=== PATIENT | female | born 1960 | race Two or more races ===

== ENCOUNTER 2024-05-15 05:58 | Inpatient (IN) | payer OTHER, MEDICARE, SELFPAY ==
[2024-05-15] VITALS (12 sets, daily range): BP systolic 119–152; BP diastolic 55–79; PULSE 65–185; RESP 18–20; TEMP 36.1–36.7; O2SAT 96–99; BMI 36.6
--- NOTE | 2024-05-15 06:12 | XR_ITS ---
Examination: AP chest single view Technique one AP portable upright chest single view Exam date and time: May 15, 2024 0616 hrs. Comparison April 18, 2018 Indication: Chest pain and tachycardia today. Findings: Normal heart size. No lobar pneumonia or pulmonary edema Impression: No lobar pneumonia or pulmonary edema
--- NOTE | 2024-05-15 06:37 | PD.EDADULT ---
ED General RME/HPI General Chief complaint: Chest Pain Stated complaint: chest pain, jaw pain, left arm pain Time Seen by Provider: 05/15/24 06:04 Arrival date/time: 05/15/24 05:58 RME / HPI RME / HPI narrative: Patient is 63 years old female with past medical history of hypertension and type 2 diabetes mellitus presented to the ED due to palpitations, shortness of breath and chest pain starting 30 minutes ago. She reports symptoms developed suddenly, her chest pain radiates to her left arm, left jaw and neck. She reports similar chest pain approximately 1 months ago but it resolved by itself and she did not seek medical attention because it resolved. She denies drinking alcohol, doing drugs or using tobacco. She denies abdominal pain, nausea, vomiting, diarrhea, fever, chills. Related Data Home Medications ?Medication ?Instructions ?Recorded ?Confirmed atenolol 100 mg tablet 100 mg PO BID ##0 08/17/09 05/15/24 glimepiride 4 mg tablet (Amaryl) 4 mg PO QDAY #0 tabs 04/10/15 05/15/24 metformin 1,000 mg tablet 1,000 mg PO BID #0 tabs 04/10/15 05/15/24 (Glucophage) fexofenadine 180 mg tablet 180 mg PO QDAY 11/02/17 05/15/24 (Monique Allergy) insulin human U-100 NPH-regulr 20 unit subcut HS 11/02/17 05/15/24 70-30 mix 100 unit/mL subcutaneous susp (Humulin 70/30 U-100 Insulin) insulin regular human 100 unit/mL 15 unit subcut TID PRN 11/02/17 05/15/24 injection solution Hyperglycemia bupropion HCl 100 mg tablet 100 mg PO DAILY 05/15/24 05/15/24 ergocalciferol (vitamin D2) 1,250 1,250 mcg PO QDAY 05/15/24 05/15/24 mcg (50,000 unit) capsule hydroxyzine HCl 25 mg tablet 25 mg PO DAILY 05/15/24 05/15/24 pravastatin 10 mg tablet 10 mg PO QDAY 05/15/24 05/15/24 Previous Rx's ?Medication ?Instructions ?Recorded albuterol sulfate 90 mcg/actuation 2 puff inhalation QID PRN 04/18/18 aerosol inhaler shortness of breath #18 grams guaifenesin 100 mg/5 mL oral liquid 200 mg (10 mL) PO Q4H PRN cold 04/18/18 symptoms #118 mL Allergies Allergy/AdvReac Type Severity Reaction Status Date / Time codeine Allergy Severe DIFFICULTY Verified 04/18/18 00:02 BREATHING Review of Systems Review of Systems Systems Reviewed: All systems reviewed, normal except as documented ED Exam Narrative Physical exam: Gen: Well-developed and well-nourished female. HEENT: NCAT, PERRLA, EOMI, MMM, anicteric conjunctivae. CVS: normal S1 and S2. Irregularly irregular. No M/R/G. Resp: CTA B/L. No rhonchi, rales, crackles or wheezing. Abd: soft, non-tender, non-distended. BS+ in all 4 quadrants. MSK: Good ROM in BUE & BLE. No edema or rash. Neuro: CN II-XII grossly intact. Strength 5/5 in BUE & BLE. Alert and oriented x3. Psych: Appears anxious. Course Course Course Narrative: 0607: EKG showed Afib with RVR, HR 148. Telemonitor shows HR in 150-180s.. 0645: given diltiazem 10 mg IV x1. HR in 120-130s. 0650: given diltiazem 10 mg IV x1. HR in 80s. 0740: decision to admit. 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 00 Care 05/15/24 06:12 Active Decision to Admit X1 Care 05/15/24 07:49 Completed EKG (ED ONLY) *Do not use* NOW Care 05/15/24 06:04 Completed EKG (ED ONLY) *Do not use* NOW Care 05/15/24 07:33 Completed Insert IV NOW Care 05/15/24 06:13 Active EKG (ED Only) Stat Exams 05/15/24 06:04 Ordered EKG (ED Only) Stat Exams 05/15/24 07:33 Ordered XR chest 1V portable Stat Exams 05/15/24 06:12 Completed B-Type Natriuretic Peptide Stat Lab 05/15/24 06:29 Completed Beta Hydroxybutyrate Stat Lab 05/15/24 08:01 Completed CBC Stat Lab 05/15/24 06:29 Completed Comprehensive Metabolic Panel Stat Lab 05/15/24 06:29 Completed Drug Screen,Urine Stat Lab 05/15/24 06:12 Completed Lactic Acid [Lactate (Lactic Acid)] Stat Lab 05/15/24 08:01 Completed Magnesium Stat Lab 05/15/24 06:29 Completed Partial Thromboplastin Time Stat Lab 05/15/24 06:29 Completed Prothrombin Time with INR Stat Lab 05/15/24 06:29 Completed TSH [Thyroid Stimulating Hormone] Stat Lab 05/15/24 06:29 Completed Troponin I Stat Lab 05/15/24 06:29 Completed Urinalysis Stat Lab 05/15/24 08:22 Completed Diltiazem Inj [Cardizem Inj] Med 05/15/24 06:36 Discontinued 10 mg IV X1 ONE Diltiazem Inj [Cardizem Inj] Med 05/15/24 06:48 Discontinued 10 mg IV X1 ONE Diltiazem Inj [Cardizem Inj] Med 05/15/24 06:46 Discontinued 15 mg IV X1 ONE Diltiazem Inj [Cardizem Inj] Med 05/15/24 06:32 Discontinued 25 mg IV .STK-MED ONE INSULIN LISPRO (AdmeLOG) [HumaLOG] Med 05/15/24 07:34 Discontinued 10 unit SC X1 ONE Magnesium Sulfate 4 GM Ivpb [Magnesium Sulfate Ivpb] Med 05/15/24 07:35 Discontinued 4 gm in 50 ml IV X1 Vital Signs Vital signs: Vital Signs Temperature 98.0 F 05/15/24 06:09 Pulse Rate 140 H 05/15/24 06:09 Respiratory Rate 20 05/15/24 06:09 Blood Pressure 119/79 05/15/24 06:09 Pulse Oximetry (%) 98 05/15/24 06:09 Oxygen Delivery Method Room Air 05/15/24 06:09 Procedures -ED EKG Interpretation #1: Date of EK05/15/24 Time of EK:07 Rate: 148 Interpretation: Reviewed by me EKG Impression: Atrial fibrillation (RVR) and Non-specific ST-T MDM Patient data External records reviewed:: [facility] previous records Clinical information provided by:: patient and family Social determinants that could affect healthcare access:: none Patient has the following chronic illnesses:: HTN and DM2 How is presenting disease/condition affected by chronic disease/condition?: exacerbated by Evaluation data The following diagnostics were reviewed and interpreted by me:: lab results, radiology exam(s) and EKG tracing(s) Lab and/or radiology exams considered but not ordered:: CTA Interpretation Summary: Afib with RVR Medications Medications considered but not ordered:: Amiodarone, metoprolol, heparin drip Medication administrations:: Medication Administration History Acetaminophen (Acetaminophen 325 Mg Tablet) 650 mg PO Q6H PRN PRN Reason: Fever >100.4 or pain Stop: 06/14/24 08:35 Apixaban (Apixaban 2.5 Mg Tablet) 5 mg PO BID RADHA Stop: 06/14/24 09:14 Last Admin: 05/15/24 10:00 Dose: 5 mg Documented By: VLADIMIR Dextrose (Dextrose 50%-Water Inj 50 Ml Syringe) 25 ml IV Q15MIN PRN PRN Reason: BG 50-70 responsive npo pt Stop: 06/14/24 08:40 Dextrose (Dextrose 50%-Water Inj 50 Ml Syringe) 50 ml IV Q15MIN PRN PRN Reason: BG <50 OR BG <70 & pt unresponsive Stop: 06/14/24 08:40 Glucagon (Glucagon Inj 1 Mg Vial) 1 mg IM Q15MIN PRN PRN Reason: BG <70, and no IV access Lactated Ringer's (Lactated Ringers) 1,000 mls @ 200 mls/hr IV .Q5H RADHA Stop: 05/15/24 18:43 Last Admin: 05/15/24 15:48 Dose: 200 mls/hr Documented By: Infusion: 05/15/24 14:30 Dose: Infused Documented By: Admin: 05/15/24 11:00 Dose: 200 mls/hr Documented By: VLADIMIR Insulin Glargine (Insulin Glargine (Lantus) 5 Unit/0.05 Ml (Per 5 Units)) 25 unit SC QDAY [facility] Stop: 06/14/24 10:59 Last Admin: 05/15/24 12:06 Dose: 25 unit Documented By: VLADIMIR Co-signed By: AVILA Insulin Human Lispro (Insulin Lispro (Admelog) 1 Unit/0.01 Ml Unit) 0 unit SC AC [facility]; Protocol Stop: 06/14/24 11:29 Last Admin: 05/15/24 16:29 Dose: 2 unit Documented By: JOLEEN Co-signed By: MATT Admin: 05/15/24 12:09 Dose: Not Given Documented By: VLADIMIR Non-Admin Reason: Duplicate Medication on eMAR Comments: ADMINISTERED 25 UNITS OF LANTUS. WILL HOLD Metoprolol Succinate (Metoprolol Succinate Xl 25 Mg Tabcr) 25 mg PO QDAY [facility] Stop: 06/14/24 11:14 Last Admin: 05/15/24 12:17 Dose: 25 mg Documented By: VLADIMIR Ondansetron HCl (Ondansetron Inj 2 Mg/Ml Inj 2 Ml) 4 mg IV Q6H PRN; Protocol PRN Reason: NAUSEA OR VOMITING Stop: 06/14/24 08:35 Pantoprazole Sodium (Pantoprazole 20 Mg Tablet) 20 mg PO QDAY [facility] Stop: 06/14/24 08:59 Last Admin: 05/15/24 10:00 Dose: 20 mg Documented By: VLADIMIR Discontinued Medications Diltiazem HCl (Diltiazem Inj 5 Mg/Ml Vial 5 Ml) 10 mg IV X1 ONE Stop: 05/15/24 06:37 Last Admin: 05/15/24 06:40 Dose: 10 mg Documented By: RUDDY Diltiazem HCl (Diltiazem Inj 5 Mg/Ml Vial 5 Ml) Confirm Administered Dose 25 mg IV .STK-MED ONE Stop: 05/15/24 06:33 Last Admin: 05/15/24 06:43 Dose: Not Given Documented By: RUDDY Non-Admin Reason: Override Medication Diltiazem HCl (Diltiazem Inj 5 Mg/Ml Vial 5 Ml) 15 mg IV X1 ONE Stop: 05/15/24 06:47 Last Admin: 05/15/24 06:53 Dose: Not Given Documented By: RUDDY Non-Admin Reason: Cancelled by Provider Diltiazem HCl (Diltiazem Inj 5 Mg/Ml Vial 5 Ml) 10 mg IV X1 ONE Stop: 05/15/24 06:49 Last Admin: 05/15/24 06:52 Dose: 10 mg Documented By: RUDDY Enoxaparin Sodium (Enoxaparin Sod Inj 40 Mg/0.4 Ml Syringe) 40 mg SC QDAY [facility] Stop: 05/29/24 08:59 Last Admin: 05/15/24 14:45 Dose: Not Given Documented By: VLADIMIR Non-Admin Reason: Per Protocol Magnesium Sulfate (Magnesium Sulfate Ivpb) 4 gm in 50 mls @ 12.5 mls/hr IV X1 ONE Stop: 05/15/24 11:34 Last Infusion: 05/15/24 12:06 Dose: Infused Documented By: Admin: 05/15/24 08:17 Dose: 12.5 mls/hr Documented By: VLADIMIR Lactated Ringer's (Lactated Ringers) 1,000 mls @ 999 mls/hr IV .Q1H1M ONE Stop: 05/15/24 09:44 Last Infusion: 05/15/24 11:25 Dose: Infused Documented By: Admin: 05/15/24 10:01 Dose: 999 mls/hr Documented By: VLADIMIR Magnesium Sulfate (Magnesium Sulfate Ivpb) 2 gm in 50 mls @ 25 mls/hr IV X1 ONE Stop: 05/15/24 13:04 Last Infusion: 05/15/24 14:55 Dose: Infused Documented By: Admin: 05/15/24 12:45 Dose: 25 mls/hr Documented By: VLADIMIR Insulin Human Lispro (Insulin Lispro (Admelog) 1 Unit/0.01 Ml Unit) 10 unit SC X1 ONE Stop: 05/15/24 07:35 Last Admin: 05/15/24 08:41 Dose: 10 unit Documented By: VLADIMIR Co-signed By: FRANSISCO Diltiazem Consultations Consultation(s) initiated? (list below): No Diagnosis Differential Diagnosis ED Complaint MDM: New onset Afib with RVR, STEMI/NSTEMI, SVT, acute CHF Most likely diagnosis given after review of the tests above:: New onset A-fib with RVR. Admission Indicated Admission indicated?: indicated Explain why admission is indicated or not indicated:: Patient came in with new onset symptomatic A-fib with RVR complaining of chest pain radiating to her left arm jaw and neck. She had similar episode 1 months ago. She never had similar symptoms before. Patient need to be worked up for possible causes of A-fib with RVR given past medical history of diabetes which appears to be poorly controlled and hypertension. Admission Request Was there a request for admission?: Yes Admission Attestation Admission request attestation: Discussed case with [] from Hospitalist service regarding admission. Discussed patients ED course, exam findings, labs, and radiology results. The Hospitalist [agrees,declines] to accept the patient for admission. Disposition Plan Disposition Plan: Admit Medical Decision Making MDM Narrative MDM Narrative: The patient is a 63-year-old with shortness of breath and chest pressure 30 minutes prior to arrival. She states she also had a similar episode lasted 5 minutes and resolved spontaneously. She is never seen a doctor for this before. On arrival she was found to be in A-fib RVR with a rate of 140-160 but, but was comfortable having some chest discomfort. Cardiac workup was initiated and we decided to give her diltiazem initially with 10 mg with a heart rate dropped about 120 still in A-fib a second 10 mg IV dose was given and soon after that she converted to sinus rhythm rate 82. Initial EKG reveals A-fib RVR with a rate of 1 40-1 70. After she converted the monitor reveals a sinus rhythm rate 82 . [address] elevation pattern on the initial EKG. Patient was much more comfortable after if she spontaneously converted after second dose of diltiazem. Chest x-ray read by myself reveals normal heart size no effusion no infiltrate. Metal clips from her bra are visualized. Laboratory shows a white count of 16.7 hemoglobin 12.4 platelet count of 212,000 PT/INR within normal limits electrolytes sodium 134 potassium 4.1 chloride 99 CO2 20 anion gap 15 BUN 25 creatinine 1.0 glucose is elevated at 416 lactic acid elevated 2.7 which was treated with 2 g troponin was slightly bumped at 0.121. TSH was normal a drug screen was done which was entirely negative. Resident Claudine Kaplan contacted the hospitalist on-call and they will admit the patient for new onset atrial for with RVR that spontaneously converted. Differential Diagnosis Differential Diagnosis: New onset Afib with RVR, STEMI/NSTEMI, SVT, acute CHF Lab Data 05/15/24 06:29 05/15/24 06:29 Labs: Lab Results 05/15/24 05/15/24 05/15/24 Range/Units 06:12 06:29 08:01 WBC 16.7 H (3.6-11.0) Thou/mm3 RBC 4.49 (4.00-5.20) Miln/mm3 Hgb 12.4 (12.0-16.0) g/dL Hct 37.8 (36.0-46.0) % MCV 84 (80-100) fL MCH 27.6 (25.0-35.0) pg MCHC 32.8 (31.0-37.0) g/dl RDW Std Deviation 44.6 (36.4-46.3) fL Plt Count 212 (140-440) Thou/mm3 Neut % (Auto) 82 H (37-80) % Lymph % (Auto) 13 (10-50) % Bullock % (Auto) 5 (0-12) % Eos % (Auto) 0 (0-10) % Baso % (Auto) 0 (0-2.5) % Neut # (Auto) 13.6 H (1.8-7.7) Thou/mm3 Lymph # (Auto) 2.1 (1.0-4.8) Thou/mm3 Bullock # (Auto) 0.8 (0.0-0.8) Thou/mm3 Eos # (Auto) 0.0 (0.0-0.5) Thou/mm3 Baso # (Auto) 0.0 (0.0-0.2) Thou/mm3 Immature Gran # (Auto) 0.15 H (0.00-0.00) Thou/mm3 Absolute Nucleated RBC 0.00 (0.00-0.00) Thou/mm3 Immature Gran % 1 H (0-0) % Nucleated RBC % 0 (0) /100 WBC PT 10.3 (9.0-12.2) Seconds INR 0.9 (0.9-1.3) APTT 22.8 (22.0-36.0) Seconds Sodium 134 L (136-145) mMol/L Potassium 4.1 (3.4-5.1) mMol/L Chloride 99 (98-107) mMol/L Carbon Dioxide 20.5 (20.0-31.0) mMol/L Anion Gap 15 (7-16) BUN 25 H (9-23) mg/dL Creatinine 1.0 (0.6-1.3) mg/dL Estim Creat Clear Calc 61.1 (>60) mL/min eGFR > 60 (60 - ) See Note BUN/Creatinine Ratio 25 H (12-20) Ratio Glucose 416 H* (74-106) mg/dL Calculated Osmolality 290 (275-295) Lactic Acid 5.6 H* (0.4-2.0) mMol/L Calcium 9.7 (8.3-10.6) mg/dL Corrected Calcium 9.7 (8.5-10.1) mg/dL Magnesium 1.4 L (1.6-2.6) mg/dL Total Bilirubin 0.3 (0.3-1.2) mg/dL AST 14 (0-34) U/L ALT 22 (10-49) U/L Alkaline Phosphatase 109 (46-116) U/L Troponin I < 0.002 (0.0-0.045) ng/mL B-Natriuretic Peptide 79 (0-100) pg/mL Total Protein 6.5 (5.7-8.2) gm/dL Albumin 4.4 (3.4-4.8) gm/dL Globulin 2.1 L (2.3-3.5) gm/dL Albumin/Globulin Ratio 2.1 (1.2-2.2) Beta-Hydroxybutyrate/Acetoacetate 0.2 (<0.6) mmol/L TSH 0.70 (0.55-4.78) uIU/mL Ur Collection Type Urine Color (Lt Yel-Yel) Urine Clarity (Clear/Hazy) Urine pH (5.0-7.0) Ur Specific Clarkson (1.001-1.035) Urine Protein (Neg - Trace) Urine Glucose (UA) (Negative) Urine Ketones (Negative) Urine Blood (Negative) Urine Nitrite (Negative) Urine Bilirubin (Negative) Urine Urobilinogen (Auto) (0.0-1.0) mg/dL Ur Leukocyte Esterase (Negative) Urine RBC (0-3) /hpf Urine WBC (0-5) /hpf Ur Squamous Epith Cells (0-5) /hpf Urine Bacteria (None) Urine Opiates Screen Negative (Negative) Urine Fentanyl Screen Negative (Negative) Ur Barbiturates Screen Negative (Negative) U Amphetamin/Meth Scrn Negative (Negative) U Benzodiazepines Scrn Negative (Negative) U Cocaine Metab Screen Negative (Negative) U Marijuana (THC) Screen Negative (Negative) 05/15/24 Range/Units 08:22 WBC (3.6-11.0) Thou/mm3 RBC (4.00-5.20) Miln/mm3 Hgb (12.0-16.0) g/dL Hct (36.0-46.0) % MCV (80-100) fL MCH (25.0-35.0) pg MCHC (31.0-37.0) g/dl RDW Std Deviation (36.4-46.3) fL Plt Count (140-440) Thou/mm3 Neut % (Auto) (37-80) % Lymph % (Auto) (10-50) % Bullock % (Auto) (0-12) % Eos % (Auto) (0-10) % Baso % (Auto) (0-2.5) % Neut # (Auto) (1.8-7.7) Thou/mm3 Lymph # (Auto) (1.0-4.8) Thou/mm3 Bullock # (Auto) (0.0-0.8) Thou/mm3 Eos # (Auto) (0.0-0.5) Thou/mm3 Baso # (Auto) (0.0-0.2) Thou/mm3 Immature Gran # (Auto) (0.00-0.00) Thou/mm3 Absolute Nucleated RBC (0.00-0.00) Thou/mm3 Immature Gran % (0-0) % Nucleated RBC % (0) /100 WBC PT (9.0-12.2) Seconds INR (0.9-1.3) APTT (22.0-36.0) Seconds Sodium (136-145) mMol/L Potassium (3.4-5.1) mMol/L Chloride (98-107) mMol/L Carbon Dioxide (20.0-31.0) mMol/L Anion Gap (7-16) BUN (9-23) mg/dL Creatinine (0.6-1.3) mg/dL Estim Creat Clear Calc (>60) mL/min eGFR (60 - ) See Note BUN/Creatinine Ratio (12-20) Ratio Glucose (74-106) mg/dL Calculated Osmolality (275-295) Lactic Acid (0.4-2.0) mMol/L Calcium (8.3-10.6) mg/dL Corrected Calcium (8.5-10.1) mg/dL Magnesium (1.6-2.6) mg/dL Total Bilirubin (0.3-1.2) mg/dL AST (0-34) U/L ALT (10-49) U/L Alkaline Phosphatase (46-116) U/L Troponin I (0.0-0.045) ng/mL B-Natriuretic Peptide (0-100) pg/mL Total Protein (5.7-8.2) gm/dL Albumin (3.4-4.8) gm/dL Globulin (2.3-3.5) gm/dL Albumin/Globulin Ratio (1.2-2.2) Beta-Hydroxybutyrate/Acetoacetate (<0.6) mmol/L TSH (0.55-4.78) uIU/mL Ur Collection Type Clean Catch Urine Color Colorless A (Lt Yel-Yel) Urine Clarity Clear (Clear/Hazy) Urine pH 6.0 (5.0-7.0) Ur Specific Clarkson 1.028 (1.001-1.035) Urine Protein Negative (Neg - Trace) Urine Glucose (UA) 4+ A (Negative) Urine Ketones Trace (Negative) Urine Blood Negative (Negative) Urine Nitrite Negative (Negative) Urine Bilirubin Negative (Negative) Urine Urobilinogen (Auto) Negative (0.0-1.0) mg/dL Ur Leukocyte Esterase Negative (Negative) Urine RBC 2 (0-3) /hpf Urine WBC 3 (0-5) /hpf Ur Squamous Epith Cells < 1 (0-5) /hpf Urine Bacteria Rare (None) Urine Opiates Screen (Negative) Urine Fentanyl Screen (Negative) Ur Barbiturates Screen (Negative) U Amphetamin/Meth Scrn (Negative) U Benzodiazepines Scrn (Negative) U Cocaine Metab Screen (Negative) U Marijuana (THC) Screen (Negative) Critical Care Time Critical Care Time Critical Care Time: Yes Total Critical Care Time (min.): 40 Attestation: The high probability of sudden, clinically significant deterioration in the patient's condition required the highest level of my preparedness to intervene urgently. The services I provided to this patient were to treat and/or prevent clinically significant deterioration. Services included the following: chart data review, reviewing nursing notes and/or old charts, documentation time, search engine optimization consultant collaboration regarding findings and treatment options, medication orders and management, direct patient care, vital sign assessments and ordering, interpreting and reviewing diagnostic studies and lab tests. Aggregate critical care time includes only time during which I was engaged in work directly related to the patient's care, as described above, whether at bedside or elsewhere in the Emergency Department. It did not include time spent performing other reported procedures or the services of residents, students, nurses or physician assistants. Discharge Plan Plan Patient Disposition: Admit Acute Care w/in Hospital Disposition Comment: Admit to hospitalist Problem List Clinical Impression: New onset a-fib, Chest pain, Atrial fibrillation with rapid ventricular response MD Attestation MD Attestation I, Eric Mazariegos MD, have reviewed the history, exam, and assessment of the patient. Note I went into the chart for the resident and filled in the MDM and gave a narrative and evaluated the patient pre and post conversion. I have evaluated the patient independently and agree with the plan of care documented by [ ]. All diagnostic studies were reviewed and discussed. I confirm the diagnosis as documented by the Resident. I was present during the Medical Decision Making for this patient. The patient's plan of care was created between myself and the Resident and consistent with our discussion of the patient's case.
[2024-05-15] MEDS: DILTIAZEM INJ 5 MG/ML VIAL 5 ML 10 MG IV ×2 (06:40→06:52)
[2024-05-15 06:46] LABS: Basophils % (Auto) 0 % (0-2.5); Eosinophils % (Auto) 0 % (0-10); Hematocrit 37.8 % (36.0-46.0); Hemoglobin 12.4 g/dL (12.0-16.0); Immature Granulocytes % (Auto) 1 % (0-0); Immature Granulocytes Auto 0.15 Thou/mm3 (0.00-0.00); Lymphocytes # (Auto) 2.1 Thou/mm3 (1.0-4.8); Lymphocytes % (Auto) 13 % (10-50); Mean Corpuscular HGB Conc 32.8 g/dl (31.0-37.0); Mean Corpuscular Hemoglobin 27.6 pg (25.0-35.0); Mean Corpuscular Volume 84 fL (80-100); Monocytes # (Auto) 0.8 Thou/mm3 (0.0-0.8); Monocytes % (Auto) 5 % (0-12); Neutrophils # (Auto) 13.6 Thou/mm3 (1.8-7.7); Neutrophils % (Auto) 82 % (37-80); Nucleated Red Blood Cell % 0 /100 WBC (0); Platelet Count 212 Thou/mm3 (140-440); RDW Standard Deviation 44.6 fL (36.4-46.3); Red Blood Count 4.49 Miln/mm3 (4.00-5.20); White Blood Count 16.7 Thou/mm3 (3.6-11.0)
[2024-05-15 07:00] LABS: INR 0.9 (0.9-1.3); Partial Thromboplastin Time 22.8 Seconds (22.0-36.0); Prothrombin Time 10.3 Seconds (9.0-12.2)
[2024-05-15 07:06] LABS: Alanine Aminotransferase 22 U/L (10-49); Albumin, Serum 4.4 gm/dL (3.4-4.8); Albumin/Globulin Ratio 2.1 (1.2-2.2); Alkaline Phosphatase 109 U/L (46-116); Anion Gap 15 (7-16); Aspartate Amino Transferase 14 U/L (0-34); BUN/Creatinine Ratio 25 Ratio (12-20); Bilirubin,Total 0.3 mg/dL (0.3-1.2); Blood Urea Nitrogen 25 mg/dL (9-23); Calcium 9.7 mg/dL (8.3-10.6); Calcium (Corrected) 9.7 mg/dL (8.5-10.1); Carbon Dioxide 20.5 mMol/L (20.0-31.0); Chloride 99 mMol/L (98-107); Estimated Creatinine Clearance 61.1 mL/min (>60); Globulin 2.1 gm/dL (2.3-3.5); Magnesium 1.4 mg/dL (1.6-2.6); Osmolality,Calculated 290 (275-295); Potassium 4.1 mMol/L (3.4-5.1); Sodium 134 mMol/L (136-145); Total Protein 6.5 gm/dL (5.7-8.2); Troponin I < 0.002 ng/mL (0.0-0.045); eGFR > 60 See Note
[2024-05-15 07:09] LABS: Glucose 416 mg/dL (74-106)
[2024-05-15 07:11] LABS: B-Type Natriuretic Peptide 79 pg/mL (0-100)
[2024-05-15 08:17] LABS: Lactate (Lactic Acid) 5.6 mMol/L (0.4-2.0)
[2024-05-15] MEDS: Magnesium Sulfate 4 GM Ivpb 4 GM/50 ML BAG IV (08:17)
[2024-05-15 08:30] LABS: Beta Hydroxybutyrate 0.2 mmol/L (<0.6)
[2024-05-15] MEDS: INSULIN LISPRO (AdmeLOG) 1 UNIT/0.01 ML UNIT 10 UNIT SC (08:41)
[2024-05-15 08:49] LABS: Collection Type, Urine Clean Catch
[2024-05-15 08:57] LABS: Bacteria,Urine Rare; Bilirubin,Urine Negative (Negative); Blood,Urine Negative (Negative); Clarity,Urine Clear (Clear/Hazy); Color,Urine Colorless (Lt Yel-Yel); Glucose, Urine 4+ (Negative); Ketones,Urine Trace (Negative); Leukocyte Esterase,Urine Negative (Negative); Nitrite,Urine Negative (Negative); Protein,Urine Negative (Neg - Trace); RBC,Urine 2 /hpf (0-3); Specific Gravity,Urine 1.028 (1.001-1.035); Squamous Epithelial Cell,Urine < 1 /hpf (0-5); Urobilinogen,Urine Negative mg/dL (0.0-1.0); WBC,Urine 3 /hpf (0-5)
[2024-05-15 09:18] LABS: Amphetamine/Methamp Scrn,U Negative (Negative); Barbiturate Screen,Urine Negative (Negative); Benzodiazepines Screen,Urine Negative (Negative); Benzoylecgonine Screen, Ur Negative (Negative); Fentanyl Screen,Urine Negative (Negative); Opiate Screen,Urine Negative (Negative); THC Screen,Urine Negative (Negative)
[2024-05-15] MEDS: PANTOPRAZOLE 20 MG TABLET PO (10:00)
[2024-05-15] MEDS: APIXABAN 2.5 MG TABLET 5 MG PO (10:00)
[2024-05-15] MEDS: RINGERS LACTATED 1000 ML 1,000 ML 999 ML IV (10:01)
--- NOTE | 2024-05-15 10:13 | PD.RESCONSUL ---
HPI Data of Consult Patient: new to practice Consult date: 05/15/24 Requesting Physician: Amisha Heard MD Admitting Provider: Amisha Heard MD Attending Provider: Amisha Heard MD Primary Care Provider: Camron Gandara MD Consult Narrative Reason for consult: Chest pain, palpitations History of present illness: Ms. Castillo is a 63-year-old female with past medical history of CVA 1997, insulin-dependent diabetes mellitus, hypertension, asthma, allergies and anxiety who presented to [facility] emergency department with a chief complaint chest pain. Patient reported initial episode of chest pressure 8/10 2 to 3 weeks ago, reported waking up with chest pain/pressure radiating to her left arm, reported the feeling of palpitations and described it as ringing in her ears . Patient reported that this morning she woke up with pain worse than last time reported chest pressure retrosternal 10/10 radiating to her left arm and jaw associated with sweating, shortness of breath, headache and palpitations, reported that she felt her heart was jogging. She reports that her pain lasted for about 1 hour and resolved in the emergency department after she was given medication. Patient otherwise denies any shortness of breath on exertion, chest pain on exertion, orthopnea, bilateral lower extremity edema, syncope, falls, dizziness and near syncope. Patient reported she has never seen a purchasing agent before, was started on atenolol by primary care physician in the past. ED course: On presentation patient had blood pressure 119/79, heart rate 140, respiratory rate 20, temp 98.0, O2 sat 98 on room air Labs in emergency department significant for: WBC 16.7, glucose 416, troponin negative, magnesium 1.4. Imaging significant for: Chest x-ray unremarkable. EKG in ED shows A-fib with RVR, rate 148 Patient received 2 rounds of diltiazem 10 mg, with resolution of A-fib with RVR and significant improvement in symptoms. Patient given 10 units Lantus for glucose. Patient admitted for cardiac chest pain, new onset atrial fibrillation and cardiology consulted. cc:: cc: Amisha Heard MD Review of Systems Review of Systems Narrative Review of Systems: ROS: -CONSTITUTIONAL: Denies weight loss, fever and chills. -HEENT: Denies changes in vision and hearing. -RESPIRATORY: Positive for shortness of breath, denies cough -CV: Positive for palpitations and chest pain -GI: Denies abdominal pain, nausea, vomiting,constipation and diarrhea. -: Denies dysuria and urinary frequency. -MSK: Denies myalgia and joint pain. -SKIN: Denies rash and pruritus. -NEUROLOGICAL: Denies headache and syncope. -PSYCHIATRIC: Denies recent changes in mood. Denies anxiety and depression. 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 Positive heart disease and grandmother and multiple aunts and uncles. Exam Vital Signs Temp Pulse Resp BP Pulse Ox O2 Del Method 98.0 F 110 H 20 130/62 96 Room Air 05/15/24 06:09 05/15/24 09:16 05/15/24 09:16 05/15/24 09:16 05/15/24 09:16 05/15/24 07:05 Narrative Exam Physical Exam General: Awake and in no acute distress. Conversational and non-toxic appearing. HEENT: Normocephalic, atraumatic, mucous membranes moist. Heart: Regular rate and rhythm, no murmurs. Lungs: Clear to auscultation with no wheezing or crackles. Abdomen: Soft, nondistended, nontender, positive bowel sounds. ?No guarding or rebound tenderness. Neurologic: Alert and oriented x3, no gross neurological deficit, and patient able to move all 4 extremities. Extremities: No edema. Skin: No rash or ecchymoses. Results Labs 05/16/24 05:42 05/16/24 05:42 Labs: Short CBC 05/15/24 Range/Units 06:29 WBC 16.7 H (3.6-11.0) Thou/mm3 Hgb 12.4 (12.0-16.0) g/dL Hct 37.8 (36.0-46.0) % Plt Count 212 (140-440) Thou/mm3 BMP 05/15/24 06:29 Sodium 134 L Potassium 4.1 Chloride 99 Carbon Dioxide 20.5 BUN 25 H Creatinine 1.0 Glucose 416 H* Calcium 9.7 Cardiac Enzymes 05/15/24 Range/Units 06:29 Troponin I < 0.002 (0.0-0.045) ng/mL Liver Function 05/15/24 Range/Units 06:29 Total Bilirubin 0.3 (0.3-1.2) mg/dL AST 14 (0-34) U/L ALT 22 (10-49) U/L Alkaline Phosphatase 109 (46-116) U/L Albumin 4.4 (3.4-4.8) gm/dL Urine 05/15/24 Range/Units 08:22 Urine Color Colorless A (Lt Yel-Yel) Urine Clarity Clear (Clear/Hazy) Urine pH 6.0 (5.0-7.0) Ur Specific [place] 1.028 (1.001-1.035) Urine Protein Negative (Neg - Trace) Urine Glucose (UA) 4+ A (Negative) Quality Measures Quality Measures none Medications Home Medications and Allergies Home Medications ?Medication ?Instructions ?Recorded ?Confirmed ?Type metformin 1,000 mg tablet 1,000 mg PO BID #0 tabs 04/10/15 05/15/24 History (Glucophage) bupropion HCl 100 mg tablet 100 mg PO DAILY 05/15/24 05/15/24 History ergocalciferol (vitamin D2) 1,250 1,250 mcg PO .once a week 05/15/24 05/16/24 History mcg (50,000 unit) capsule hydroxyzine HCl 25 mg tablet 25 mg PO DAILY 05/15/24 05/15/24 History albuterol sulfate 2.5 mg/3 mL 2.5 mg inhalation BID PRN 05/16/24 05/16/24 History (0.083 %) solution for nebulization shortness of breath or wheezing fluticasone propionate 50 1 spray intranasal DAILY 05/16/24 05/16/24 History mcg/actuation nasal spray,suspension gabapentin 300 mg capsule 300 mg PO BID 05/16/24 05/16/24 History ibuprofen 600 mg tablet 600 mg PO Q8H PRN pain 05/16/24 05/16/24 History insulin glargine 100 unit/mL (3 50 unit subcut QDAY 05/16/24 05/16/24 History mL) subcutaneous pen (Lantus Solostar U-100 Insulin) lisinopril 40 mg tablet 40 mg PO BID 05/16/24 05/16/24 History loratadine 10 mg tablet 10 mg PO DAILY 05/16/24 05/16/24 History montelukast 10 mg tablet 10 mg PO DAILY 05/16/24 05/16/24 History omeprazole 40 mg capsule,delayed 40 mg PO DAILY 05/16/24 05/16/24 History release Allergies Allergy/AdvReac Type Severity Reaction Status Date / Time codeine Allergy Severe DIFFICULTY Verified 04/18/18 00:02 BREATHING Visit Medications Acetaminophen (Acetaminophen 325 Mg Tablet) 650 mg PO Q6H PRN PRN Reason: Fever >100.4 or pain Stop: 06/14/24 08:35 Apixaban (Apixaban 2.5 Mg Tablet) 5 mg PO BID [facility] Stop: 06/14/24 09:14 Last Admin: 05/15/24 10:00 Dose: 5 mg Dextrose (Dextrose 50%-Water Inj 50 Ml Syringe) 25 ml IV Q15MIN PRN PRN Reason: BG 50-70 responsive npo pt Stop: 06/14/24 08:40 Dextrose (Dextrose 50%-Water Inj 50 Ml Syringe) 50 ml IV Q15MIN PRN PRN Reason: BG <50 OR BG <70 & pt unresponsive Stop: 06/14/24 08:40 Glucagon (Glucagon Inj 1 Mg Vial) 1 mg IM Q15MIN PRN PRN Reason: BG <70, and no IV access Magnesium Sulfate (Magnesium Sulfate Ivpb) 4 gm in 50 mls @ 12.5 mls/hr IV X1 ONE Stop: 05/15/24 11:34 Last Admin: 05/15/24 08:17 Dose: 12.5 mls/hr Lactated Ringer's (Lactated Ringers) 1,000 mls @ 200 mls/hr IV .Q5H RADHA Stop: 05/15/24 18:43 Insulin Glargine (Insulin Glargine (Lantus) 5 Unit/0.05 Ml (Per 5 Units)) 25 unit SC QDAY [facility] Stop: 06/14/24 10:59 Insulin Human Lispro (Insulin Lispro (Admelog) 1 Unit/0.01 Ml Unit) 0 unit SC AC [facility]; Protocol Stop: 06/14/24 11:29 Ondansetron HCl (Ondansetron Inj 2 Mg/Ml Inj 2 Ml) 4 mg IV Q6H PRN; Protocol PRN Reason: NAUSEA OR VOMITING Stop: 06/14/24 08:35 Pantoprazole Sodium (Pantoprazole 20 Mg Tablet) 20 mg PO QDAY [facility] Stop: 06/14/24 08:59 Last Admin: 05/15/24 10:00 Dose: 20 mg Discontinued Medications Diltiazem HCl (Diltiazem Inj 5 Mg/Ml Vial 5 Ml) 10 mg IV X1 ONE Stop: 05/15/24 06:37 Last Admin: 05/15/24 06:40 Dose: 10 mg Diltiazem HCl (Diltiazem Inj 5 Mg/Ml Vial 5 Ml) 15 mg IV X1 ONE Stop: 05/15/24 06:47 Last Admin: 05/15/24 06:53 Dose: Not Given Diltiazem HCl (Diltiazem Inj 5 Mg/Ml Vial 5 Ml) 10 mg IV X1 ONE Stop: 05/15/24 06:49 Last Admin: 05/15/24 06:52 Dose: 10 mg Enoxaparin Sodium (Enoxaparin Sod Inj 40 Mg/0.4 Ml Syringe) 40 mg SC QDAY [facility] Stop: 05/29/24 08:59 Lactated Ringer's (Lactated Ringers) 1,000 mls @ 999 mls/hr IV .Q1H1M ONE Stop: 05/15/24 09:44 Last Admin: 05/15/24 10:01 Dose: 999 mls/hr Insulin Human Lispro (Insulin Lispro (Admelog) 1 Unit/0.01 Ml Unit) 10 unit SC X1 ONE Stop: 05/15/24 07:35 Last Admin: 05/15/24 08:41 Dose: 10 unit Assessment & Plan Plan Assessment and Plan: Summary: Ms. Castillo is a 63-year-old female with past medical history of CVA 1997, insulin-dependent diabetes mellitus, hypertension, asthma, allergies and anxiety who presented to [facility] emergency department with a chief complaint chest pain. Patient admitted for cardiac chest pain, new onset atrial fibrillation and cardiology consulted. #NSTEMI type I versus type II #Typical cardiac chest pain #Elevated troponin Reported initial episode of chest pressure 8/10 2 to 3 weeks ago, reported waking up with chest pain/pressure radiating to her left arm, reported the feeling of palpitations and described it as ringing in her ears . Reported second episode this morning she woke up with pain worse than last time reported chest pressure retrosternal 10/10 radiating to her left arm and jaw associated with sweating, shortness of breath, headache and palpitations, reported that she felt her heart was jogging. She reports that her pain lasted for about 1 hour and resolved in the emergency department after she was given medication. EKG in ED shows A-fib with RVR, rate 148 Per Xi Catrina classification pretest likelihood of CAD in symptomatic patients, patient has typical angina, likelihood of CAD is 86%. NOEL ACS score 115 points, intermediate risk category, probability of in hospital 1 to 3%, 3 to 8% post discharge to 6 months. Initial troponin in ED Negative -> 0.091 -> 0.121 Recommendations: -Aspirin 325 x1, started on aspirin 81mg qday -Start high intensity statin and continue metoprolol -Hold Eliquis, follow troponin -Patient refused cardiac catheterisation, will continue with medical management -Trend troponin every 6 hours -Monitor for chest pain, consider repeating EKG as needed -Ordered echocardiogram to assess for LV function, RV function, assess for any regional wall abnormalities. #New onset A-fib with heart failure, resolved Patient had an episode of chest pain radiating to left arm and jaw associated with sweating, shortness of breath, headache and palpitations reported that her heart was jogging. She reports that her pain lasted for about 1 hour and resolved in the emergency department after she was given medication. EKG in ED shows A-fib with RVR, rate 148 Patient was given diltiazem 10 mg x 2 in ED and patient converted to sinus rhythm. [id number] Score 5 points, stroke risk 7.2% Recommendations: -Patient started on metoprolol succinate 25 mg p.o. daily, stop atenolol -Patient started on Eliquis 5 mg twice daily, will hold eveniong dose, trend troponin -Telemetry monitoring -Ordered echocardiogram to assess for LV function, RV function, rule out thrombus and assess for any regional wall abnormalities. #Hypertension Patient is on atenolol 100 mg p.o. twice daily, lisinopril 10 mg daily Patient started on metoprolol succinate, monitor blood pressure, can uptitrate metoprolol succinate as needed. #Hyperlipidemia Patient is on pravastatin 10 mg p.o. daily, continue Follow lipid panel #Electrolyte imbalance #Hypomagnesemia Corrected replace electrolytes aggressively, keep potassium more than 4 and magnesium more than 2 at all times #Insulin-dependent diabetes mellitus type 2 #Hyperglycemia #Pseudohyponatremia Patient is on Humulin, glimepiride and metformin for diabetes management. Reports was on semaglutide previously. Patient's blood glucose 416 on presentation Corrected sodium 139 for blood glucose on presentation -Currently on sliding scale insulin -Goal blood glucose for hospitalization 140?180 #GUILLERMINA, prerenal versus renal Baseline creatinine 0.6?0.7, baseline BUN 15, baseline GFR more than 60 On presentation creatinine 1.0, BUN 25, GFR more than 60 Patient is currently on IV fluids started by primary team #History of CVA, 1997 Reports history of CVA, informed that she was hospitalized in 1997 for stroke. Not on aspirin or Plavix #Leukocytosis WBC count 16.7, possibly reactive no signs of active infection currently. #Asthma #Allergies # Anxiety Management per primary team Thank you for the consult and allowing to participate in the care of the patient. Cardiology will continue to follow. Case discussed with Attending Dr. Beck. Eric Phoenix PGY1 Disclaimer: This note was dictated by speech recognition. Minor errors in mobile plant operators may be present due to voice recognition software. Attending Provider Attestation/Addendum I have personally seen and examined the patient separately on the above date of service and discussed the plan of care with the resident. I reviewed the resident Dr. Eric Phoenix consultation progress note and agree with the resident findings and plan in the note above and have also edited the documentation to reflect my findings and plan. A 63-year-old female with a past medical history of CVA in 1997, morbid obesity, insulin-dependent diabetes mellitus, hypertension, asthma, allergies, anxiety, depression, history of suicide attempt, severe osteoarthritis causing significant disability and on NSAIDs every day, asthma presented to the hospital for further evaluation of chest pain. Patient apparently has been having some chest pain but chest pressure recently with started 2 to 3 weeks ago when she had her first episode acutely subsided and today she woke up with chest pain chest pressure radiating to left arm as well as the jaw associated with some palpitation, sweating, shortness of breath. Pain lasted for an hour and subsided after giving medication. In the emergency department patient's EKG showed atrial fibrillation with RVR at 148 bpm. Patient was given 10 mg IV diltiazem x 2 and the converted to normal sinus rhythm. Patient admitted to the hospital for further workup as troponins were elevated at 0.091 0.121. Patient at high risk for CAD and cardiology consulted for A-fib as well as elevated troponins. Assessment and plan: 1. Chest pain/chest pressure with elevated troponins Mostly NSTEMI type II from supply/demand mismatch in the setting of paroxysmal atrial fibrillation but we need to rule out NSTEMI type I as patient does have significant factors for CAD as noted above. Troponins peaked at 0.12. Noel risk score was also elevated. EKG showed A-fib with RVR with minimal ST depressions during the A-fib with RVR episode. Echocardiogram was ordered Patient was recommended further ischemic evaluation with cardiac catheterization versus outpatient evaluation. Patient refused cardiac cath as she does not want any kind of invasive procedures and was recommended to follow-up with cardiology as outpatient for further ischemic evaluation. Aspirin statin and beta-holden. Check A1c TSH as well as lipid profile for further cardiac restratification. 2. New onset paroxysmal atrial fibrillation. Patient presented with A-fib with RVR at rate of around 150 bpm in the emergency department and converted to normal sinus rhythm with diltiazem 10 mg IV x 2. Chest Vascor is elevated and recommend anticoagulation with Eliquis 5 mg twice daily. Metoprolol 25 mg XL for rate control and will continue to uptitrate rate based on the blood pressure.. Will need to be at least admitted for XL 50 mg once daily 3. Essential hypertension: Started on metoprolol XL and continue to uptitrate rate and continue lisinopril for rate control 4. Hyperlipidemia Check lipid panel and continue statin for now. Management of rest of the medical conditions as per primary team and other consultants. Thank you for the consult and allowing me to participate in the care of the patient. Cardiology will continue to follow. Ramses Beck M.D. Interventional Cardiology
[2024-05-15] MEDS: RINGERS LACTATED 1000 ML 1,000 ML 200 ML IV ×2 (11:00→15:48)
[2024-05-15 11:09] LABS: Reflex Lactate? Y
[2024-05-15 11:39] LABS: Lactate (Lactic Acid) 3.8 mMol/L (0.4-2.0)
[2024-05-15] MEDS: INSULIN GLARGINE (Lantus) 5 UNIT/0.05 ML (PER 5 UNITS) 25 UNIT SC (12:06)
[2024-05-15 12:13] LABS: Troponin I 0.091 ng/mL (0.0-0.045)
[2024-05-15] MEDS: METOPROLOL SUCCINATE XL 25 MG TABCR PO ×2 (12:17→21:18)
[2024-05-15] MEDS: Magnesium Sulfate 2 GM Ivpb 2 GM/50 ML BAG IV ×2 (12:45→21:18)
[2024-05-15 14:32] LABS: Reflex Lactate? Y
[2024-05-15 15:21] LABS: Lactic Acid, 3 HR 2.7 mMol/L (0.4-2.0)
[2024-05-15 15:53] LABS: Troponin I 0.121 ng/mL (0.0-0.045)
--- NOTE | 2024-05-15 16:03 | ESHP_ITS ---
<Statement entered by Ava Silva MD - 05/16/24 06:05> I discussed with and supervised the international trade manager physician who took care of this patient. I personally saw and examined the patient and discussed the assessment and plan with the entire medicine team, including my attending Dr. Heard, I agree with most of the assessment and plan as documented below Ava Silva M.D. PGY-2 Documentation for date of: 05/15/24 HPI History of Present Illness Chief complaint: Chest pain, palpitations History of present illness: 63 y/o F with PMHx significant for insulin-dependent diabetes, hypertension presents to ED with chief complaint of sudden onset cramping chest pain radiating to left arm and jaw, with associated palpitations and shortness of breath. Patient reports having a similar episode 1 month ago that self resolved after 5 minutes. Patient was lying in bed watching a movie when the pain came on 10 out of 10, I did not resolve she came to the ED. She has no known cardiac history and does not follow with a core blower. Denies fever, chills, nausea, vomiting, abdominal pain, weakness, fatigue. ED COURSE: Labs significant for: WBC 16.7, glucose 416, troponin negative, magnesium 1.4. Imaging significant for: Chest x-ray unremarkable. EKG showing A-fib with RVR. Patient received 2 rounds of diltiazem 10 mg, with resolution of A-fib with RVR and significant improvement in symptoms. Patient given 10 units Lantus for glucose. PMH: Insulin-dependent diabetes, hypertension, PSH: Cholecystectomy, appendectomy, abdominal abscess drainage SH: Denies smoking, alcohol, drug use. FH: Mother passed due to CHF, father passed due to heart attack at age 80, has 1 grandmother and 1 grandfather who had patient mentation. Occupation: Retired, previously worked at a [employer]. Allergies:?Codeine Medications: Atenolol, albuterol, bupropion, insulin, hydroxyzine, metformin, pravastatin, omeprazole Review of Systems Review of Systems Systems Reviewed: All systems reviewed, normal except as documented Past Medical History Past Medical History Comments PMH COMMENT: PMH: Insulin-dependent diabetes, hypertension, PSH: Cholecystectomy, appendectomy, abdominal abscess drainage SH: Denies smoking, alcohol, drug use. FH: Mother passed due to CHF, father passed due to heart attack at age 80, has 1 grandmother and 1 grandfather who had patient mentation. Occupation: Retired, previously worked at a [employer]. Allergies:?Codeine Medications: Atenolol, albuterol, bupropion, insulin, hydroxyzine, metformin, pravastatin, omeprazole Exam Vital Signs Temp Pulse Resp BP Pulse Ox O2 Del Method 98.0 F 65 20 152/60 H 98 Room Air 05/15/24 06:09 05/15/24 12:17 05/15/24 11:24 05/15/24 12:17 05/15/24 11:24 05/15/24 11:24 Narrative Exam PE: Gen: Well-developed and well-nourished. HEENT: NCAT, PERRLA, EOMI, MMM, anicteric conjunctivae. CVS: normal S1 and S2. RRR. No M/R/G. Resp: CTA B/L. No rhonchi, rales, crackles or wheezing. Abd: soft, non-tender, non-distended. MSK: Good ROM in BUE & BLE. No edema or rash. Neuro: CN II-XII grossly intact. Strength 5/5 in BUE & BLE. Alert and oriented x3. Psych: appropriate mood and affect. Results: Labs 05/15/24 06:29 05/15/24 06:29 Labs: Short CBC 05/15/24 Range/Units 06:29 WBC 16.7 H (3.6-11.0) Thou/mm3 Hgb 12.4 (12.0-16.0) g/dL Hct 37.8 (36.0-46.0) % Plt Count 212 (140-440) Thou/mm3 BMP 05/15/24 06:29 Sodium 134 L Potassium 4.1 Chloride 99 Carbon Dioxide 20.5 BUN 25 H Creatinine 1.0 Glucose 416 H* Calcium 9.7 Cardiac Enzymes 05/15/24 05/15/24 05/15/24 Range/Units 06:29 11:29 15:00 Troponin I < 0.002 0.091 H* 0.121 H* (0.0-0.045) ng/mL Liver Function 05/15/24 Range/Units 06:29 Total Bilirubin 0.3 (0.3-1.2) mg/dL AST 14 (0-34) U/L ALT 22 (10-49) U/L Alkaline Phosphatase 109 (46-116) U/L Albumin 4.4 (3.4-4.8) gm/dL Urine 05/15/24 Range/Units 08:22 Urine Color Colorless A (Lt Yel-Yel) Urine Clarity Clear (Clear/Hazy) Urine pH 6.0 (5.0-7.0) Ur Specific [place] 1.028 (1.001-1.035) Urine Protein Negative (Neg - Trace) Urine Glucose (UA) 4+ A (Negative) Quality Measures Quality Measures VTE prophylaxis Medications Home Medications and Allergies Home Medications ?Medication ?Instructions ?Recorded ?Confirmed ?Type atenolol 100 mg tablet 100 mg PO BID ##0 08/17/09 0 05/15/24 History glimepiride 4 mg tablet (Amaryl) 4 mg PO QDAY #0 tabs 04/10/15 05/15/24 History metformin 1,000 mg tablet 1,000 mg PO BID #0 tabs 03/3105/15/24 History (Glucophage) fexofenadine 180 mg tablet 180 mg PO QDAY 11/02/17 History (Monique Allergy) insulin human U-100 NPH-regulr 20 unit subcut HS 11/0205/15/24 History 70-30 mix 100 unit/mL subcutaneous susp (Humulin 70/30 U-100 Insulin) insulin regular human 100 unit/mL 15 unit subcut TID P RN 11/02/17 05/15/24 History injection solution Hyperglycemia bupropion HCl 100 mg tablet 100 mg PO DAILY 05/15/24 0 05/15/24 History ergocalciferol (vitamin D2) 1,250 1,250 mcg PO QDAY 05/15/24 History mcg (50,000 unit) capsule hydroxyzine HCl 25 mg tablet 25 mg PO DAILY 05/15/24 0 05/15/24 History pravastatin 10 mg tablet 10 mg PO QDAY 05/15/2405/15 History Allergies Allergy/AdvReac Type Severity Reaction Status Date / Time codeine Allergy Severe DIFFICULTY Verified 04/18/18 00:02 BREATHING Visit Medications Acetaminophen (Acetaminophen 325 Mg Tablet) 650 mg PO Q6H PRN PRN Reason: Fever >100.4 or pain Stop: 06/14/24 08:35 Apixaban (Apixaban 2.5 Mg Tablet) 5 mg PO BID [facility] Stop: 06/14/24 09:14 Last Admin: 05/15/24 10:00 Dose: 5 mg Dextrose (Dextrose 50%-Water Inj 50 Ml Syringe) 25 ml IV Q15MIN PRN PRN Reason: BG 50-70 responsive npo pt Stop: 06/14/24 08:40 Dextrose (Dextrose 50%-Water Inj 50 Ml Syringe) 50 ml IV Q15MIN PRN PRN Reason: BG <50 OR BG <70 & pt unresponsive Stop: 06/14/24 08:40 Glucagon (Glucagon Inj 1 Mg Vial) 1 mg IM Q15MIN PRN PRN Reason: BG <70, and no IV access Lactated Ringer's (Lactated Ringers) 1,000 mls @ 200 mls/hr IV .Q5H [facility] Stop: 05/15/24 18:43 Last Admin: 05/15/24 15:48 Dose: 200 mls/hr Insulin Glargine (Insulin Glargine (Lantus) 5 Unit/0.05 Ml (Per 5 Units)) 25 unit SC QDAY [facility] Stop: 06/14/24 10:59 Last Admin: 05/15/24 12:06 Dose: 25 unit Insulin Human Lispro (Insulin Lispro (Admelog) 1 Unit/0.01 Ml Unit) 0 unit SC [facility]; Protocol Stop: 06/14/24 11:29 Last Admin: 05/15/24 12:09 Dose: Not Given Metoprolol Succinate (Metoprolol Succinate Xl 25 Mg Tabcr) 25 mg PO QDAY [facility] Stop: 06/14/24 11:14 Last Admin: 05/15/24 12:17 Dose: 25 mg Ondansetron HCl (Ondansetron Inj 2 Mg/Ml Inj 2 Ml) 4 mg IV Q6H PRN; Protocol PRN Reason: NAUSEA OR VOMITING Stop: 06/14/24 08:35 Pantoprazole Sodium (Pantoprazole 20 Mg Tablet) 20 mg PO QDAY [facility] Stop: 06/14/24 08:59 Last Admin: 05/15/24 10:00 Dose: 20 mg Discontinued Medications Diltiazem HCl (Diltiazem Inj 5 Mg/Ml Vial 5 Ml) 10 mg IV X1 ONE Stop: 05/15/24 06:37 Last Admin: 05/15/24 06:40 Dose: 10 mg Diltiazem HCl (Diltiazem Inj 5 Mg/Ml Vial 5 Ml) 15 mg IV X1 ONE Stop: 05/15/24 06:47 Last Admin: 05/15/24 06:53 Dose: Not Given Diltiazem HCl (Diltiazem Inj 5 Mg/Ml Vial 5 Ml) 10 mg IV X1 ONE Stop: 05/15/24 06:49 Last Admin: 05/15/24 06:52 Dose: 10 mg Enoxaparin Sodium (Enoxaparin Sod Inj 40 Mg/0.4 Ml Syringe) 40 mg SC QDAY [facility] Stop: 05/29/24 08:59 Last Admin: 05/15/24 14:45 Dose: Not Given Magnesium Sulfate (Magnesium Sulfate Ivpb) 4 gm in 50 mls @ 12.5 mls/hr IV X1 ONE Stop: 05/15/24 11:34 Last Infusion: 05/15/24 12:06 Dose: Infused Lactated Ringer's (Lactated Ringers) 1,000 mls @ 999 mls/hr IV .Q1H1M ONE Stop: 05/15/24 09:44 Last Infusion: 05/15/24 11:25 Dose: Infused Magnesium Sulfate (Magnesium Sulfate Ivpb) 2 gm in 50 mls @ 25 mls/hr IV X1 ONE Stop: 05/15/24 13:04 Last Infusion: 05/15/24 14:55 Dose: Infused Insulin Human Lispro (Insulin Lispro (Admelog) 1 Unit/0.01 Ml Unit) 10 unit SC X1 ONE Stop: 05/15/24 07:35 Last Admin: 05/15/24 08:41 Dose: 10 unit Assessment & Plan Plan 63 y/o F with PMHx significant for insulin-dependent diabetes, hypertension presents to ED with chief complaint of sudden onset cramping chest pain radiating to left arm and jaw, with associated palpitations and shortness of breath, admitted for new onset A-fib with RVR. #New onset A-fib with RVR #NSTEMI type I versus type II Patient presented with chief complaint of palpitations, shortness of breath, 10 out of 10 cramping chest pain radiating to jaw and left arm. Patient noted for with RVR confirmed by EKG, treated with 2 rounds of diltiazem 10 with resolution. Patient is no known previous cardiac history, does not follow with core blower. Troponin uptrending slightly, following trend. CHADVASC score 2, anticoag initiated. -Dr. Beck consulted, appreciate recommendations -Metoprolol succinate 25 mg p.o. daily -Eliquis 5 mg p.o. twice daily -Keep magnesium greater than 2 potassium greater than 4 -Telemetry -Echocardiogram ordered, follow-up -Trend troponin #Diabetes, insulin-dependent Patient has history as stated. Last A1c over a year ago. Patient requires insulin, 50 units long-acting daily. Patient hyperglycemic at presentation with glucose 416, given 10 units long-acting in the ED. Glucose down trended to 303. Patient given IVF bolus lactated Ringer's 1 L. -Insulin sliding scale -Lantus 25 units daily -IVF: Lactated Ringer's 200 mL/h x 2 L -A1c ordered, follow-up #Hypertension, patient history Patient is history as stated, treated with outpatient atenolol. -Cardiology on board, patient recommendations -Metoprolol as above DVT prophylaxis: Eliquis GI prophylaxis: Protonix Diet: Protonix Lines: Peripheral IV Code status: Full code Plan of care discussed with senior resident Dr. Silva PGY?[address] Heard. Rc Garcia MD PGY?1 Attending Provider Attestation/Addendum I attest that I was physically present for the evaluation, physical examination, lab and imaging review of the patient with the residents. I discussed the case with the residents and agree with the findings and plans of care as documented above. Patient is a 63 years old female with past medical history of diabetes, hypertension who presented to the ED with complaint of chest pain radiating to her left arm and jaw. She also had palpitation and shortness of breath. Patient had similar episode 1 month back. Patient was also having chronic cough, for which she has been on steroids. In the ED, her WBC count is 16.7 glucose 416. She is EKG was obtained, which shows A-fib with RVR. Chest x-ray was obtained, negative for acute pathology. Patient received IV diltiazem following which her rate was controlled. She also received insulin in the ED. We will admit the patient for management of A-fib with RVR and elevated troponin. Started on metoprolol, Eliquis. We will obtain cardiology consult, trend troponin. Started on insulin regimen for diabetes. We will also continue with aggressive IV hydration. Amisha Heard MD
[2024-05-15] MEDS: INSULIN LISPRO (AdmeLOG) 1 UNIT/0.01 ML UNIT SC (16:29)
[2024-05-15] MEDS: Aspirin 325 MG TABLET PO (21:45)
[2024-05-15] MEDS: ACETAMINOPHEN 325 MG TABLET 650 MG PO (21:45)
[2024-05-15 22:06] LABS: Troponin I 0.137 ng/mL (0.0-0.045)
[2024-05-15] MEDS: hydrOXYzine HCL 25 MG TABLET PO (23:36)
[2024-05-16] VITALS: BP 177/95; PULSE 80; PULSE 84; RESP 17; TEMP 36.5; O2SAT 96
[2024-05-16 04:00] VITALS: BP 124/66; PULSE 76; PULSE 78; RESP 14; TEMP 36.2; O2SAT 97
[2024-05-16 04:40] VITALS: BMI 39.4
--- NOTE | 2024-05-16 05:00 | EKG_ITS ---
[facility] Test Date: 2024-05-16 Pat Name: LEO CHAPMAN Department: Room: [facility] Gender: Female Brick Mason: [facility] : 1960 Requested By: Rc Linares Order Number: [id number] Reading MD: Rc Linares Measurements Intervals [place] Rate: 68 P: 67 MO: 138 QRS: 67 QRSD: 92 T: 56 QT: 401 QTc: 427 Interpretive Statements SINUS RHYTHM No previous ECG available for comparison /[email or web address]/[email or web address]/[id number]
[2024-05-16 05:59] LABS: Lactate (Lactic Acid) 1.5 mMol/L (0.4-2.0)
[2024-05-16 06:07] LABS: Basophils # (Auto) 0.1 Thou/mm3 (0.0-0.2); Basophils % (Auto) 1 % (0-2.5); Eosinophils # (Auto) 0.2 Thou/mm3 (0.0-0.5); Eosinophils % (Auto) 2 % (0-10); Hematocrit 34.9 % (36.0-46.0); Hemoglobin 11.3 g/dL (12.0-16.0); Immature Granulocytes % (Auto) 1 % (0-0); Immature Granulocytes Auto 0.07 Thou/mm3 (0.00-0.00); Lymphocytes # (Auto) 4.8 Thou/mm3 (1.0-4.8); Lymphocytes % (Auto) 45 % (10-50); Mean Corpuscular HGB Conc 32.4 g/dl (31.0-37.0); Mean Corpuscular Hemoglobin 27.4 pg (25.0-35.0); Mean Corpuscular Volume 85 fL (80-100); Monocytes # (Auto) 0.7 Thou/mm3 (0.0-0.8); Monocytes % (Auto) 7 % (0-12); Neutrophils # (Auto) 4.9 Thou/mm3 (1.8-7.7); Neutrophils % (Auto) 46 % (37-80); Nucleated Red Blood Cell % 0 /100 WBC (0); Platelet Count 173 Thou/mm3 (140-440); RDW Standard Deviation 44.4 fL (36.4-46.3); Red Blood Count 4.12 Miln/mm3 (4.00-5.20); White Blood Count 10.7 Thou/mm3 (3.6-11.0)
[2024-05-16 06:12] LABS: Glucose Estimated Average 197 mg/dL (80-131); Hemoglobin A1C 8.5 % Hgb (4.8-6.0)
[2024-05-16 06:20] LABS: Partial Thromboplastin Time 22.5 Seconds (22.0-36.0); Prothrombin Time 10.8 Seconds (9.0-12.2)
[2024-05-16 07:00] LABS: Alanine Aminotransferase 28 U/L (10-49); Albumin, Serum 3.6 gm/dL (3.4-4.8); Albumin/Globulin Ratio 2.1 (1.2-2.2); Alkaline Phosphatase 79 U/L (46-116); Anion Gap 10 (7-16); Aspartate Amino Transferase 32 U/L (0-34); BUN/Creatinine Ratio 30 Ratio (12-20); Bilirubin,Total 0.3 mg/dL (0.3-1.2); Blood Urea Nitrogen 21 mg/dL (9-23); Calcium 8.5 mg/dL (8.3-10.6); Calcium (Corrected) 8.8 mg/dL (8.5-10.1); Carbon Dioxide 28.7 mMol/L (20.0-31.0); Cardiac Risk Estimate 4.1 RATIO (3.7-5.6); Chloride 102 mMol/L (98-107); Cholesterol 170 mg/dL (132-200); Creatinine (Component) 0.7 mg/dL (0.6-1.3); Estimated Creatinine Clearance 91.1 mL/min (>60); Globulin 1.7 gm/dL (2.3-3.5); Glucose 159 mg/dL (74-106); HDL Cholesterol 41 mg/dL (40-60); LDL Cholesterol,Calculated 72 mg/dL (0-130); Magnesium 1.9 mg/dL (1.6-2.6); Osmolality,Calculated 287 (275-295); Phosphorous 3.4 mg/dL (2.4-5.1); Potassium 3.1 mMol/L (3.4-5.1); Sodium 141 mMol/L (136-145); Total Protein 5.3 gm/dL (5.7-8.2); Triglycerides 285 mg/dL (30-150); eGFR > 60 See Note
[2024-05-16 07:06] LABS: Troponin I 0.103 ng/mL (0.0-0.045)
[2024-05-16] MEDS: POTASSIUM CHLORIDE 20 mEq TABCR PO (07:54)
[2024-05-16] MEDS: Magnesium Sulfate 2 GM Ivpb 2 GM/50 ML BAG IV (07:54)
[2024-05-16] MEDS: INSULIN GLARGINE (Lantus) 5 UNIT/0.05 ML (PER 5 UNITS) 25 UNIT SC (07:54)
[2024-05-16 08:00] VITALS: BP 137/69; PULSE 65; PULSE 81; RESP 18; TEMP 35.9; O2SAT 99
--- NOTE | 2024-05-16 08:45 | ECHO_ITS ---
Transthoracic Echo Report Ht (in): 62 Wt (lb): 216 Exam Location: Echo Lab Status: Inpatient Watch Inspector Final Movement: SONIYA Monterroso^^^^ Indications: Procedure Performed: BP: 134 / 78 HR: 86 Rhythm: Atrial fibrillation Technical Quality: Technically difficult study MEASUREMENTS (Male / Female) Normal Values 2D ECHO LV Diastolic Diameter PLAX 3.6 cm 4.2 - 5.9 / 3.9 - 5.3 cm LV Systolic Diameter PLAX 2.5 cm IVS Diastolic Thickness 1.0 cm 0.6 - 1.0 / 0.6 - 0.9 cm LVPW Diastolic Thickness 0.9 cm 0.6 - 1.0 / 0.6 - 0.9 cm LV Relative Wall Thickness 0.5 LVOT Diameter 1.7 cm Aortic Root Diameter 2.7 cm LA Systolic Diameter LX 3.7 cm 3.0 - 4.0 / 2.7 - 3.8 cm Ascending Aorta Diameter 2.7 cm DOPPLER AV Peak Velocity 155.0 cm/s AV Peak Gradient 9.6 mmHg AV Mean Gradient 6.0 mmHg AV Velocity Time Integral 38.3 cm AI Peak Velocity 215.0 cm/s AI Peak Gradient 18.5 mmHg AI Pressure Half Time 384.0 ms MV Area PHT 2.3 cm? Mitral E Point Velocity 74.9 cm/s Mitral A Point Velocity 119.0 cm/s Mitral E to A Ratio 0.6 TR Peak Velocity 249.5 cm/s TR Peak Gradient 24.9 mmHg PV Peak Velocity 107.1 cm/s PV Peak Gradient 4.6 mmHg RVOT Peak Velocity 82.4 cm/s FINDINGS Left Ventricle Normal left ventricular size, wall thickness, systolic function with no obvious regional wall motion abnormalities. There is grade I diastolic dysfunction of the left ventricle (impaired relaxation pattern). The left ventricular ejection fraction is normal, estimated at 60-65%. Right Ventricle The right ventricle is normal in size and systolic function. The estimated right ventricular systolic pressure, 26 mmHg. Left Atrium The left atrium is normal by two-dimensional, color flow and Doppler imaging with no structural abnormalities, no thrombus formation present. Right Atrium The right atrium is normal by two-dimensional imaging, color flow and Doppler imaging with no structural abnormalities, no thrombus formation present. Atrial Septum The interatrial septum appears normal with no evidence of a shunt. Aorta The aorta is normal by two-dimensional, color flow and Doppler interrogation. Mitral Valve Mild mitral regurgitation. Mild mitral annular calcification. Aortic Valve Aortic valve sclerosis. Trace to mild aortic valve regurgitation. Tricuspid Valve There is mild tricuspid valve regurgitation. Vessels The pulmonary artery appears normal. The inferior vena cava pulmonary and hepatic veins appear normal. Pericardium The pericardium is normal by two-dimensional imaging. There is no significant pericardial effusion. CONCLUSIONS Indication: New onset Afib Normal LV size and function with an EF of 60 to 65%. Diastolic dysfunction present but cannot be graded because of atrial fibrillation. Normal RV size and function.Estimated RVSP is 20 to 25 mmHg. Trace to mild TR. Mild aortic valve sclerosis without stenosis V-max of 2 m/s. Mild mitral annular calcification along with mild MR. Trace AI. Ramses Beck (Electronically Signed) Final Date: 16 May 2024 15:24
[2024-05-16 09:10] VITALS: BP 137/69; PULSE 85
[2024-05-16] MEDS: POTASSIUM CHLORIDE 20 mEq TABCR 40 MEQ PO (09:10)
[2024-05-16] MEDS: METOPROLOL SUCCINATE XL 25 MG TABCR PO (09:10)
[2024-05-16] MEDS: PANTOPRAZOLE 20 MG TABLET PO (09:10)
[2024-05-16] MEDS: ASPIRIN EC 81 MG TABEC PO (09:11)
--- NOTE | 2024-05-16 10:13 | ESPR_ITS ---
Documentation for date of: 05/16/24 Subjective Subjective Interval history: Patient seen and examined at bedside. Patient is stable, was started on metoprolol succinate 25 mg daily yesterday. Was given additional dose 25 mg x 1 metoprolol succinate at night. Patient's troponin peaked at 0.137 then down trended. Patient needs to be on medical management for CAD considering NSTEMI type II. Patient to be discharged on aspirin 81 mg daily, metoprolol succinate 50 mg daily, atorvastatin 40 mg at bedtime and Eliquis 5 mg twice daily. Discontinue pravastatin and atenolol. Patient's Hemoglobin A1c 8.5, patient was recently prescribed steroids. Patient is on insulin at home, optimize glycemic control for risk management. Patient will need cardiology follow-up outpatient. Exam Vital Signs Temp Pulse Resp BP Pulse Ox O2 Del Method 96.6 F L 85 18 137/69 H 99 Room Air 05/16/24 08:00 05/16/24 09:10 05/16/24 08:00 05/16/24 09:10 05/16/24 08:00 05/16/24 08:00 Narrative Exam Physical Exam General: Awake and in no acute distress. Conversational and non-toxic appearing. HEENT: Normocephalic, atraumatic, mucous membranes moist. Heart: Regular rate and rhythm, no murmurs. Lungs: Clear to auscultation with no wheezing or crackles. Abdomen: Soft, nondistended, nontender, positive bowel sounds. ?No guarding or rebound tenderness. Neurologic: Alert and oriented x3, no gross neurological deficit, and patient able to move all 4 extremities. Extremities: No edema. Skin: No rash or ecchymoses. Objective Labs 05/16/24 05:42 05/16/24 05:42 Labs: Laboratory Results - last 24 hr 05/15/24 05/15/24 05/15/24 11:29 15:00 20:47 WBC RBC Hgb Hct MCV MCH MCHC RDW Std Deviation Plt Count Neut % (Auto) Lymph % (Auto) [place] % (Auto) Eos % (Auto) Baso % (Auto) Neut # (Auto) Lymph # (Auto) [place] # (Auto) Eos # (Auto) Baso # (Auto) Immature Gran # (Auto) Absolute Nucleated RBC Immature Gran % Nucleated RBC % PT INR APTT Sodium Potassium Chloride Carbon Dioxide Anion Gap BUN Creatinine Estim Creat Clear Calc eGFR BUN/Creatinine Ratio Glucose Estimated Ave Glu mg/dL Hemoglobin A1c Calculated Osmolality Lactic Acid 3.8 H 2.7 H Calcium Corrected Calcium Phosphorus Magnesium Total Bilirubin AST ALT Alkaline Phosphatase Troponin I 0.091 H* 0.121 H* 0.137 H* Total Protein Albumin Globulin Albumin/Globulin Ratio Triglycerides Cholesterol LDL Cholesterol, Calc HDL Cholesterol Cholesterol/HDL Ratio 05/16/24 05:42 WBC 10.7 D RBC 4.12 Hgb 11.3 L Hct 34.9 L MCV 85 MCH 27.4 MCHC 32.4 RDW Std Deviation 44.4 Plt Count 173 D Neut % (Auto) 46 Lymph % (Auto) 45 [place] % (Auto) 7 Eos % (Auto) 2 Baso % (Auto) 1 Neut # (Auto) 4.9 Lymph # (Auto) 4.8 [place] # (Auto) 0.7 Eos # (Auto) 0.2 Baso # (Auto) 0.1 Immature Gran # (Auto) 0.07 H Absolute Nucleated RBC 0.00 Immature Gran % 1 H Nucleated RBC % 0 PT 10.8 INR 1.0 APTT 22.5 Sodium 141 Potassium 3.1 L D Chloride 102 Carbon Dioxide 28.7 Anion Gap 10 BUN 21 Creatinine 0.7 Estim Creat Clear Calc 91.1 eGFR > 60 BUN/Creatinine Ratio 30 H Glucose [address] Glu mg/dL 197 H Hemoglobin A1c 8.5 H Calculated Osmolality 287 Lactic Acid 1.5 Calcium 8.5 Corrected Calcium 8.8 Phosphorus 3.4 Magnesium 1.9 Total Bilirubin 0.3 AST 32 ALT 28 Alkaline Phosphatase 79 D Troponin I 0.103 H* Total Protein 5.3 L Albumin 3.6 D Globulin 1.7 L Albumin/Globulin Ratio 2.1 Triglycerides 285 H Cholesterol 170 LDL Cholesterol, Calc 72 HDL Cholesterol 41 Cholesterol/HDL Ratio 4.1 Quality Measures Quality Measures VTE prophylaxis Assessment & Plan Assessment Current Active Medications: Generic Name Dose Route Start Last Admin Trade Name Freq PRN Reason Stop Dose Admin Acetaminophen 650 mg 05/15/24 08:36 05/15/24 21:45 Acetaminophen 325 Mg Tablet PO 06/14/24 08:35 650 mg Q6H PRN Administration Fever >100.4 or pain Aspirin 81 mg 05/16/24 09:00 05/16/24 09:11 Aspirin Ec 81 Mg Tabec PO 06/15/24 08:59 81 mg QDAY RADHA Administration Dextrose 25 ml 05/15/24 08:41 Dextrose 50%-Water Inj 50 Ml Syringe IV 06/14/24 08:40 Q15MIN PRN BG 50-70 responsive npo pt Dextrose 50 ml 05/15/24 08:41 Dextrose 50%-Water Inj 50 Ml Syringe IV 06/14/24 08:40 Q15MIN PRN BG <50 OR BG <70 & pt unresponsive Glucagon 1 mg 05/15/24 08:41 Glucagon Inj 1 Mg Vial IM Q15MIN PRN BG <70, and no IV access Hydroxyzine HCl 25 mg 05/15/24 22:51 05/15/24 23:36 Hydroxyzine Hcl 25 Mg Tablet PO 06/15/24 20:59 25 mg HS PRN Administration Anxiety Insulin Glargine 25 unit 05/15/24 11:00 05/16/24 07:54 Insulin Glargine (Lantus) 5 Unit/0.05 Ml (Per 5 Units) SC 06/14/24 10:59 25 unit QDAY RADHA Administration Insulin Human Lispro 0 unit 05/15/24 11:30 05/16/24 07:30 Insulin Lispro (Admelog) 1 Unit/0.01 Ml Unit SC 06/14/24 11:29 Not Given AC RADHA Protocol Metoprolol Succinate 25 mg 05/15/24 11:15 05/16/24 09:10 Metoprolol Succinate Xl 25 Mg Tabcr PO 06/14/24 11:14 25 mg QDAY RADHA Administration Ondansetron HCl 4 mg 05/15/24 08:36 Ondansetron Inj 2 Mg/Ml Inj 2 Ml IV 06/14/24 08:35 Q6H PRN NAUSEA OR VOMITING Protocol Pantoprazole Sodium 20 mg 05/15/24 09:00 05/16/24 09:10 Pantoprazole 20 Mg Tablet PO 06/14/24 08:59 20 mg QDAY RADHA Administration Plan Assessment and Plan: Summary: Ms. Castillo is a 63-year-old female with past medical history of CVA 1997, insulin-dependent diabetes mellitus, hypertension, asthma, allergies and anxiety who presented to [facility] emergency department with a chief complaint chest pain. Patient admitted for cardiac chest pain, new onset atrial fibrillation and cardiology consulted. #NSTEMI type I versus type II #Typical cardiac chest pain #Elevated troponin Reported initial episode of chest pressure 8/10 2 to 3 weeks ago, reported waking up with chest pain/pressure radiating to her left arm, reported the feeling of palpitations and described it as ringing in her ears . Reported second episode this morning she woke up with pain worse than last time reported chest pressure retrosternal 10/10 radiating to her left arm and jaw associated with sweating, shortness of breath, headache and palpitations, reported that she felt her heart was jogging. She reports that her pain lasted for about 1 hour and resolved in the emergency department after she was given medication. EKG in ED shows A-fib with RVR, rate 148 Per Xi Catrina classification pretest likelihood of CAD in symptomatic patients, patient has typical angina, likelihood of CAD is 86%. NOEL ACS score 115 points, intermediate risk category, probability of in hospital 1 to 3%, 3 to 8% post discharge to 6 months. Initial troponin in ED Negative -> 0.091 -> 0.121 -> 0.137 -> 0.103 ECHO 05/16/24 Normal LV size and function with an EF of 60 to 65%. Diastolic dysfunction present but cannot be graded because of atrial fibrillation. Normal RV size and function.Estimated RVSP is 20 to 25 mmHg. Trace to mild TR. Mild aortic valve sclerosis without stenosis V-max of 2 m/s. Mild mitral annular calcification along with mild MR. Trace AI. Recommendations: -Continue aspirin 81 mg -Continue atorvastatin 40 mg at bedtime -Continue metoprolol succinate 50 mg daily -Continue Eliquis 5 mg twice daily -Patient refused cardiac catheterisation, will continue with medical management #New onset A-fib with heart failure, resolved Patient had an episode of chest pain radiating to left arm and jaw associated with sweating, shortness of breath, headache and palpitations reported that her heart was jogging. She reports that her pain lasted for about 1 hour and resolved in the emergency department after she was given medication. EKG in ED shows A-fib with RVR, rate 148 Patient was given diltiazem 10 mg x 2 in ED and patient converted to sinus rhythm. [id number] Score 5 points, stroke risk 7.2% Recommendations: -Continue metoprolol succinate 50 mg p.o. daily, stop atenolol -Patient started on Eliquis 5 mg twice daily, continue -Telemetry monitoring #Hypertension Patient is on atenolol 100 mg p.o. twice daily, lisinopril 10 mg daily Patient started on metoprolol succinate, monitor blood pressure, can uptitrate metoprolol succinate as needed. #Hyperlipidemia Patient is on pravastatin 10 mg p.o. daily, continue Follow lipid panel #Electrolyte imbalance #Hypomagnesemia Corrected replace electrolytes aggressively, keep potassium more than 4 and magnesium more than 2 at all times #Insulin-dependent diabetes mellitus type 2 #Hyperglycemia #Pseudohyponatremia Patient is on Humulin, glimepiride and metformin for diabetes management. Reports was on semaglutide previously. Patient's blood glucose 416 on presentation Corrected sodium 139 for blood glucose on presentation -Currently on sliding scale insulin -Goal blood glucose for hospitalization 140?180 #GUILLERMINA, prerenal versus renal Baseline creatinine 0.6?0.7, baseline BUN 15, baseline GFR more than 60 On presentation creatinine 1.0, BUN 25, GFR more than 60 Patient is currently on IV fluids started by primary team #History of CVA, 1997 Reports history of CVA, informed that she was hospitalized in 1997 for stroke. Not on aspirin or Plavix #Leukocytosis WBC count 16.7, possibly reactive no signs of active infection currently. #Asthma #Allergies # Anxiety Management per primary team Thank you for the consult and allowing to participate in the care of the patient. Cardiology will continue to follow. Case discussed with Attending Dr. Beck. Eric Phoenix PGY1 Disclaimer: This note was dictated by speech recognition. Minor errors in administrative library assistant may be present due to voice recognition software. Attending Provider Attestation/Addendum I have personally seen and examined the patient separately on the above date of service and discussed the plan of care with the resident. I reviewed the resident Dr. Eric Phoenix consultation progress note and agree with the resident findings and plan in the note above and have also edited the documentation to reflect my findings and plan. Ramses Beck M.D. Interventional Cardiology
--- NOTE | 2024-05-16 10:52 | PC.PT ---
Attempt to initiate PT evaluation. Patient was sitting on the chair with 2 female visitors. Patient states she has been ambulating to go to restroom independently. This is confirmed by Nursing staff. Will cancel PT evaluation. Patient agreed.
[2024-05-16] MEDS: INSULIN LISPRO (AdmeLOG) 1 UNIT/0.01 ML UNIT SC (11:37)
[2024-05-16 12:00] VITALS: BP 150/82; PULSE 73; RESP 17; TEMP 36.1; O2SAT 98
--- NOTE | 2024-05-16 12:51 | PC.SS ---
SS met with patient who is alert/oriented. Patient states she resides with her daughter, Rohini. Patient states she's independent with ADL's. Patient was admitted for afib w/RVR. Patient states she follows with Dr. Merry Gandara. Last appt. was last week. Patient has not had any major health problems. Patient has not seen a Envelope Fold Operator for o/p service. She will be following up with p.c.p. to be referred to Cardiology. Patient states she drives herself to appointments. Patient states her alt medical decision maker is her daughter, Melissa. [facility]acy: [facility]. Patient may discharge home today. No further d/c needs.
--- NOTE | 2024-05-16 13:21 | PC.NURSE ---
Patient has discharge orders, patient's daughter will be picking her up although, she is working until 1900. MD and tele staff aware.
--- NOTE | 2024-05-16 13:39 | ESDS_ITS ---
<Statement entered by Gabrielle Issa MD - 05/16/24 15:34> I discussed with and supervised the internet marketing manager physician who took care of this patient. I personally saw and examined the patient and discussed the assessment and plan with the entire medicine team, including my attending Dr. Maravilla, I agree with the assessment and plan as documented below Patient seen and examined at bedside today. Labs and imaging reviewed. All questions were answered recommendation were given to come at the ED at any time if she is not feeling well, patient was advised of risk and benefits of an ticoagulation to see medical attention if she present gum bleeds or GI per rectum or urine. Patient will be discharged home with: -Aspirin 81 mg daily -Atorvastatin 40 mg daily -Eliquis 5 mg twice daily -Metoprolol succinate 50 mg daily The following medications have been stopped: -Atenolol, pravastatin Please follow-up with your PCP within 1-2 weeks Please follow-up with cardiology outpatient Gabrielle Issa MD PGY-3 Disclaimer: Despite multiple revisions, due to the dictation software being used, the document bellow may not be free of grammatical errors including phonetic/typographic errors. However, this does not deter from our commitment to providing health care in the patient's best interest in mind. <Statement entered by Ava Silva MD - 05/16/24 15:13> I discussed with and supervised the internet marketing manager physician who took care of this patient. I personally saw and examined the patient and discussed the assessment and plan with the entire medicine team, including my attending , I agree with most of the assessment and plan as documented below Ava Silva M.D. PGY-2 Planned Discharge Date 05/16/24 DS: Providers Provider Date of admission: 05/15/24 08:36 Primary care physician: Camron Gandara MD Admitting Provider: Amisha Heard MD Attending Provider on Admission: Marcos Maravilla MD Consults: 05/15/24 08:41 Consult to Cardiology Routine Comment: Consulting Provider: Ramses Beck 05/15/24 16:23 Referral Respiratory Therapy Routine Comment: 05/16/24 09:38 Consult to Cardiology Routine Comment: Consulting Provider: Inderjit River Attending Provider on DC: Marcos Maravilla MD Discharging Provider: Rc Garcia MD DS: Diagnosis Problem List Completed Was Problem List Reviewed/Reconciled?: Yes Hospital Course Hospital Course Hospital course: 63 y/o F with PMHx significant for insulin-dependent diabetes, hypertension presents to ED on 05/15/2024 with chief complaint of sudden onset cramping chest pain radiating to left arm and jaw, with associated palpitations and shortness of breath, admitted for new onset A-fib with RVR. A-fib resolved with 2 doses diltiazem 10 mg IV, confirmed with EKG. Patient had mild troponinemia which peaks at 0.137, likely demand ischemia. Cardiology was consulted, patient was started on metoprolol succinate, aspirin, statin. Patient cleared for discharge from cardiology perspective, with outpatient follow-up. Patient medically stable and cleared for discharge. Discharge plan: You have started on the following medications: -Aspirin 81 mg daily -Atorvastatin 40 mg daily -Eliquis 5 mg twice daily -Metoprolol succinate 50 mg daily The following medications have been stopped: -Atenolol, pravastatin Please follow-up with your PCP within 1-2 weeks Please follow-up with cardiology outpatient Please return to the ED if develop new or worsening symptoms You have been started on blood thinner, please return to ED if you develop sudden or unstoppable bleeding. Diagnoses: #New onset A-fib with RVR, resolved #NSTEMI type II #Diabetes, insulin-dependent #Hypertension, patient history Plan of care discussed with senior residents Dr. Silva PGY?[address] Issa PGY-3, and attending Dr. Maravilla. Rc Garcia MD PGY?1 Time Spent with Patient Time attestation: Total time spent providing and/or coordinating discharge services: Exam Vital Signs Temp Pulse Resp BP Pulse Ox O2 Del Method 97.0 F 85 17 150/82 H 98 Room Air 05/16/24 12:00 05/16/24 09:10 05/16/24 12:00 05/16/24 12:00 05/16/24 12:00 05/16/24 12:00 Narrative Exam PE: Gen: Well-developed and well-nourished. HEENT: NCAT, PERRLA, EOMI, MMM, anicteric conjunctivae. CVS: normal S1 and S2. RRR. No M/R/G. Resp: CTA B/L. No rhonchi, rales, crackles or wheezing. Abd: soft, non-tender, non-distended. MSK: Good ROM in BUE & BLE. No edema or rash. Neuro: CN II-XII grossly intact. Strength 5/5 in BUE & BLE. Alert and oriented x3. Psych: appropriate mood and affect. Discharge Plan Plan Patient Disposition: HOME (Self Care) Patient condition on transfer: Stable Care Plan Goals: You have started on the following medications: -Aspirin 81 mg daily -Atorvastatin 40 mg daily -Eliquis 5 mg twice daily -Metoprolol succinate 50 mg daily The following medications have been stopped: -Atenolol, pravastatin Please follow-up with your PCP within 1-2 weeks Please follow-up with cardiology outpatient Please return to the ED if develop new or worsening symptoms You have been started on blood thinner, please return to ED if you develop sudden or unstoppable bleeding. Prescriptions/Referrals Prescriptions/Med Rec: New aspirin [Ecotrin Low Strength] 81 mg Tablet,Delayed Release (Dr/Ec) 81 mg PO QDAY 30 Days Qty: 30 0RF Eliquis 5 mg tablet 5 mg PO BID 30 Days Qty: 60 0RF metoprolol succinate 50 mg tablet extended release 24 hr 50 mg PO QDAY 30 Days Qty: 30 0RF atorvastatin 40 mg tablet 40 mg PO QDAY 30 Days Qty: 30 0RF Continued metformin [Glucophage] 1,000 MG tablet 1,000 mg PO BID Qty: 0 albuterol sulfate 90 mcg/actuation HFA aerosol inhaler 2 puff INH QID PRN (Reason: shortness of breath) Qty: 18 0RF bupropion HCl 100 mg tablet 100 mg PO DAILY Patient Comments: TAKE 1 TABLET BY MOUTH TWICE DAILY hydroxyzine HCl 25 mg tablet 25 mg PO DAILY Patient Comments: TAKE 1 TABLET BY MOUTH EVERY 8 HOURS NEEDED ergocalciferol (vitamin D2) 1,250 mcg (50,000 unit) capsule 1,250 mcg PO .once a week Patient Comments: TAKE 1 CAPSULE BY MOUTH WEEKLY gabapentin 300 mg capsule 300 mg PO BID Patient Comments: TAKE 1 CAPSULE BY MOUTH TWICE DAILY fluticasone propionate 50 mcg/actuation spray,suspension 1 spray INTRANASAL DAILY Patient Comments: SHAKE LIQUID AND USE 1 SPRAY IN EACH NOSTRIL DAILY loratadine 10 mg tablet 10 mg PO DAILY Patient Comments: TAKE 1 TABLET BY MOUTH DAILY FOR ALLERGIES ibuprofen 600 mg tablet 600 mg PO Q8H PRN (Reason: pain) Patient Comments: TAKE 1 TABLET BY MOUTH THREE TIMES DAILY WITH FOOD OR MILK NEEDED omeprazole 40 mg capsule,delayed release(DR/EC) 40 mg PO DAILY Patient Comments: TAKE 1 CAPSULE BY MOUTH EVERY MORNING 30 MINUTES BEFORE BREAKFAST lisinopril 40 mg tablet 40 mg PO BID montelukast 10 mg tablet 10 mg PO DAILY Patient Comments: TAKE 1 TABLET BY MOUTH DAILY albuterol sulfate 2.5 mg /3 mL (0.083 %) solution for nebulization 2.5 mg inhalation BID PRN (Reason: shortness of breath or wheezing) Patient Comments: USE 3 ML VIA NEBULIZER EVERY 6 HOURS NEEDED insulin glargine [Lantus Solostar U-100 Insulin] 100 unit/mL (3 mL) insulin pen 50 unit subcut QDAY Discontinued atenolol 100 MG tablet 100 mg PO DAILY Qty: 0 pravastatin 10 mg tablet 10 mg PO QDAY Patient Comments: TAKE 1 TABLET BY MOUTH EVERY NIGHT Referrals: Camron Gandara MD [Primary Care Provider] - Patient/Caregiver Discharge Instructions Discharge Activity: resume usual activities Education Materials: Your Heart's Electrical System, AFL/Afib, Your Heart Is at Risk, Understanding Atrial Fibrillation Print Language: Urdu Stand Alone Forms: Myla Award Info., Patient Portal Info Letter Discharge Order Discharge Orders: Discharge (Routine); Ordered 05/16/24 Ordered By: Rc Garcia Quality Discharge Quality Measures VTE prophylaxis Attestestation MD Attestation I have examined the patient, reviewed labs and imaging findings, discussed the case with the resident(s), and reviewed entered orders. I agree with the plan of care as outlined in this note. Dr. Taiwo MD
[2024-05-16 16:00] VITALS: BP 146/92; PULSE 86; PULSE 91; RESP 17; TEMP 36.1; O2SAT 96
== END 2024-05-16 16:30 | disposition home or self-care (01) | DRG 309 ==
LOC: SERX 08:02 → SERHOLD 09:14 → S2NX 15:40
PROVIDERS: Nurse Practitioner Primary Care; Student in an Organized Health Care Education/Training Program; Admitting Provider Student in an Organized Health Care Education/Training Program; Emergency Provider Emergency Medicine; PCP Family Medicine; Visit Provider Student in an Organized Health Care Education/Training Program
DX: I48.91 Unspecified atrial fibrillation (principal); I24.89 Other forms of acute ischemic heart disease; E11.65 Type 2 diabetes mellitus with hyperglycemia; I11.0 Hypertensive heart disease with heart failure; I50.9 Heart failure, unspecified; Z79.4 Long term (current) use of insulin; Z79.82 Long term (current) use of aspirin; Z79.899 Other long term (current) drug therapy; Z79.01 Long term (current) use of anticoagulants; Z90.49 Acquired absence of other specified parts of digestive tract; Z88.5 Allergy status to narcotic agent; Z79.84 Long term (current) use of oral hypoglycemic drugs
CPT/HCPCS: 36415; 71045; 80053; 80061; 80307; 81001; 82010; 83036; 83605; 83735; 83880; 84100; 84443; 84484; 85025; 85610; 85730; 93005; 93306; 96365; 96366; 96367; 96372; 99291; J1815; J3475; J3490; J7120; A9270

== ENCOUNTER → 2024-07-12 | Outpatient (CLI) | payer MEDICARE, MEDICAID, SELFPAY ==
[2024-07-12 10:57] LABS: Glucose Estimated Average 157 mg/dL (80-131); Hemoglobin A1C 7.1 % Hgb (4.8-6.0)
[2024-07-12 11:10] LABS: Vitamin D 25 Hydroxy Total 110.1 ng/mL (7.3-40.2)
[2024-07-12 11:17] LABS: Creatinine MALB Rnd Ur 239 mg/dL (30-125); Microalbumin Creat Ratio 9 mg/gCrea (<30); Microalbumin, Random Urine 22 mg/L (0-300)
[2024-07-12 11:29] LABS: Alanine Aminotransferase 20 U/L (10-49); Albumin, Serum 4.4 gm/dL (3.4-4.8); Albumin/Globulin Ratio 2.1 (1.2-2.2); Alkaline Phosphatase 76 U/L (46-116); Anion Gap 12 (7-16); Aspartate Amino Transferase 19 U/L (0-34); BUN/Creatinine Ratio 18 Ratio (12-20); Bilirubin,Total 0.5 mg/dL (0.3-1.2); Blood Urea Nitrogen 11 mg/dL (9-23); Carbon Dioxide 28.7 mMol/L (20.0-31.0); Chloride 103 mMol/L (98-107); Creatinine (Component) 0.6 mg/dL (0.6-1.3); Globulin 2.1 gm/dL (2.3-3.5); Glucose 132 mg/dL (74-106); Osmolality,Calculated 288 (275-295); Potassium 4.3 mMol/L (3.4-5.1); Sodium 144 mMol/L (136-145); Total Protein 6.5 gm/dL (5.7-8.2); eGFR > 60 See Note
== END | disposition home or self-care (01) ==
LOC: COPL 10:04
PROVIDERS: PCP Family Medicine; Referring Provider Registered Nurse; Visit Provider Registered Nurse
DX: Z00.00 Encounter for general adult medical examination without abnormal findings (principal); E11.65 Type 2 diabetes mellitus with hyperglycemia
CPT/HCPCS: 36415; 80053; 82043; 82306; 82570; 83036

== ENCOUNTER 2024-07-24 01:29 | Emergency (ER) | payer MEDICARE, MEDICAID, SELFPAY ==
[2024-07-24 01:31] VITALS: BMI 34.7
--- NOTE | 2024-07-24 01:40 | PD.EDUPEX ---
Upper Extremity Injury RME/HPI General Chief Complaint: Extremity Injury, Upper Stated Complaint: PAIN TO L SHOULDER/NECK Time Seen by Provider: 07/24/24 01:50 Arrival date/time: 07/24/24 01:29 RME / HPI RME / HPI narrative: This section includes all my notes and documentations, including HPI, PE, and ED course. Manuel Briggs MD HPI: 64yo female with a history of DM, HTN, aFib presents to the ED for a chief complaint of left-sided neck pain. On and off for several months but severe for about 24 hours. Patient states her pain radiates to her left chest and left shoulder. She denies any shortness of breath, fever, chills, dizziness, lightheadedness or any other associated symptoms. Denies any falls or injuries. No numbness or tingling. No paralysis. No other complaints reported. ROS: All negative except as documented in HPI. Physical Exam: General: Alert and oriented. Appears to be in severe pain distress. Eyes: Conjunctivae and lids clear. EOMI. PERRL. ENT: No nasal congestion. Neck: Supple. Limited ROM secondary to pain. Heart: RRR. Lungs: No respiratory distress. Good air movement. No rhonchi, wheezing, rales. Chest: No tenderness. Abdomen: Soft and nontender. Skin: Warm and dry. Neuro: Alert and oriented X 3. Cranial Nerves II-XII grossly intact. No peripheral motor deficits. Musculoskeletal: Limited ROM of the left shoulder secondary to pain. I reviewed all diagnostic test results. My interpretation of the EKG is sinus rhythm with PACs and nonspecific ST-T wave changes. My review of the CT chest report is no acute findings. My review of the CT cervical spine is no acute findings. Blood tests are unremarkable except for Magnesium 1.4. At this point, diagnoses include cervical spine stenosis with hypomagnesemia. Treatment here included NS, Toradol, Morphine, and Magnesium Sulfate. Significant improvement noted. Recommended supportive care and more outpatient workup. Based on my best medical judgment, made decision no further evaluation or treatment indicated at this time. Patient understands and agrees to the discharge instructions customized and printed, see below. Discharge Instructions from Dr. Briggs printed for you: 1. After evaluation, your pain is due to pinched nerve coming out of the neck. There is no life-threatening condition. Such as heart attack. 2. Controlling pinched nerve pain is very difficult. Because normal pain medications don't work well. 3. Continue your tramadol and cyclobenzaprine at home. Try lidocaine patches. 4. Wear soft neck collar for 3 full days then as needed. 5. Apply ice/heat if helpful. 6. Most importantly, see a private doctor outside the ER on 07/25/2024. Ask for MRI imaging of the neck to confirm the diagnosis and assess severity. Some people choose to have surgery. Ask to review all test results and official radiology reports, to make sure you receive all necessary follow-ups and monitoring, including magnesium level which was low today. 7. Seek immediate medical care with worsening, paralysis, or with any concerns. Manuel Briggs MD Related Data Home Medications ?Medication ?Instructions ?Recorded ?Confirmed metformin 1,000 mg tablet 1,000 mg PO BID #0 tabs 04/10/15 05/15/24 (Glucophage) bupropion HCl 100 mg tablet 100 mg PO DAILY 05/15/24 05/15/24 ergocalciferol (vitamin D2) 1,250 1,250 mcg PO .once a week 05/15/24 05/16/24 mcg (50,000 unit) capsule hydroxyzine HCl 25 mg tablet 25 mg PO DAILY 05/15/24 05/15/24 albuterol sulfate 2.5 mg/3 mL 2.5 mg inhalation BID PRN 05/16/24 05/16/24 (0.083 %) solution for nebulization shortness of breath or wheezing fluticasone propionate 50 1 spray intranasal DAILY 05/16/24 05/16/24 mcg/actuation nasal spray,suspension gabapentin 300 mg capsule 300 mg PO BID 05/16/24 05/16/24 ibuprofen 600 mg tablet 600 mg PO Q8H PRN pain 05/16/24 05/16/24 insulin glargine 100 unit/mL (3 50 unit subcut QDAY 05/16/24 05/16/24 mL) subcutaneous pen (Lantus Solostar U-100 Insulin) lisinopril 40 mg tablet 40 mg PO BID 05/16/24 05/16/24 loratadine 10 mg tablet 10 mg PO DAILY 05/16/24 05/16/24 montelukast 10 mg tablet 10 mg PO DAILY 05/16/24 05/16/24 omeprazole 40 mg capsule,delayed 40 mg PO DAILY 05/16/24 05/16/24 release Previous Rx's ?Medication ?Instructions ?Recorded albuterol sulfate 90 mcg/actuation 2 puff inhalation QID PRN 04/18/18 aerosol inhaler shortness of breath #18 grams lidocaine 5 % topical patch 2 patch topical QDAY PRN pain #30 07/24/24 (Lidoderm) ea Allergies Allergy/AdvReac Type Severity Reaction Status Date / Time codeine Allergy Severe DIFFICULTY Verified 07/24/24 01:37 BREATHING Review of Systems Review of Systems Systems Reviewed: All systems reviewed, normal except as documented Past Medical History Past Medical History NEUROLOGIC: Negative Seizures CARDIAC: Positive Hypertension; Negative Congestive Heart Failure RESPIRATORY: Positive Asthma; Negative Chronic Obstructive Pulmonary Disease (COPD) GASTROINTESTINAL: Positive Gall Bladder Disease GENITOURINARY: Negative Genitourinary Disorders or Renal Disease REPRODUCTIVE: Positive Previous Pregnancies ENDOCRINE: Positive Diabetes Mellitus Type 2; Negative Diabetes Mellitus Type 1 HEMATOLOGIC: Negative Blood Disorders OTHER HISTORY: Positive Chicken Pox; Negative Blood Transfusions, Blood Transfusion Reaction, Anesthesia Reactions or Clostridium Difficile Family History FAMILY HISTORY: Negative Family Cancer Surgical History SURGICAL: Positive Tonsillectomy and Abdominal Surgery Social History SMOKING STATUS: Never smoker ED Exam Narrative Physical exam: As noted in HPI. Course Quality Measures none Orders Category Date Time Status EKG (ED ONLY) *Do not use* NOW Care 07/24/24 01:52 Completed Saline [Insert IV] NOW Care 07/24/24 01:[address] cervical spine wo con Stat Exams 07/24/24 01:[address] chest wo con Stat Exams 07/24/24 01:52 Taken EKG (ED Only) Stat Exams 07/24/24 01:52 Ordered BNP [B-Type Natriuretic Peptide] Stat Lab 07/24/24 02:05 Completed CBC Stat Lab 07/24/24 02:05 Completed CMP [Comprehensive Metabolic Panel] Stat Lab 07/24/24 02:05 Completed Magnesium Stat Lab 07/24/24 02:05 Completed Troponin I Stat Lab 07/24/24 02:05 Completed Ketorolac Inj [Toradol Inj] Med 07/24/24 01:50 Discontinued 15 mg IVP X1 ONE Magnesium Sulfate 2 GM Ivpb [Magnesium Sulfate Ivpb] Med 07/24/24 03:28 Active 2 gm in 50 ml IV X1 Morphine Inj Med 07/24/24 01:50 Discontinued 6 mg IVP X1 ONE Sodium Chloride 0.9% 1000 ml [Ns] 1,000 ml Med 07/24/24 01:51 Active IV 250 mls/hr Vital Signs Vital signs: Vital Signs Temperature 98.6 F 07/24/24 01:46 Pulse Rate 106 H 07/24/24 01:46 Respiratory Rate 16 07/24/24 01:46 Blood Pressure 146/72 H 07/24/24 01:46 Pulse Oximetry (%) 97 07/24/24 01:46 Oxygen Delivery Method Room Air 07/24/24 01:46 Extremity Injury MDM Narrative MDM Narrative:: 64yo female with a history of DM, HTN, aFib presents to the ED for a chief complaint of left-sided neck pain for the last 1 day. Patient states her pain radiates to her chest and left shoulder. She denies any shortness of breath, fever, chills, dizziness, lightheadedness or any other associated symptoms. Denies any falls or injuries. No other complaints reported. Patient data External records reviewed:: [facility] previous records (Per chart review, patient was admitted here on 05/15/24 for aFib RVR.) Clinical information provided by:: patient Social determinants that could affect healthcare access:: none Patient has the following chronic illnesses:: DM, HTN, aFib How is presenting disease/condition affected by chronic disease/condition?: uneffected by Evaluation data The following diagnostics were reviewed and interpreted by me:: lab results, radiology exam(s) and EKG tracing(s) (My interpretation of the EKG is: Sinus rhythm (101 bpm) with PACs and nonspecific ST-T changes. Manuel Briggs MD) Lab and/or radiology exams considered but not ordered:: none Interpretation Summary: I reviewed all diagnostic test results. My interpretation of the EKG is sinus rhythm with PACs and nonspecific ST-T wave changes. My review of the CT chest report is no acute findings. My review of the CT cervical spine is no acute findings. Blood tests are unremarkable except for Magnesium 1.4. Medications / Prescriptions Medications or Prescriptions considered but not ordered:: none Medication administrations:: Medication Administration History Sodium Chloride (Ns) 1,000 mls @ 250 mls/hr IV .Q4H ONE Stop: 07/24/24 05:50 Last Admin: 07/24/24 02:14 Dose: 250 mls/hr Documented By: ROCIO Magnesium Sulfate (Magnesium Sulfate Ivpb) 2 gm in 50 mls @ 25 mls/hr IV X1 ONE Stop: 07/24/24 05:27 Discontinued Medications Ketorolac Tromethamine (Ketorolac Inj 30 Mg/Ml Vial) 15 mg IVP X1 ONE Stop: 07/24/24 01:51 Last Admin: 07/24/24 02:14 Dose: 15 mg Documented By: ROCIO Morphine Sulfate (Morphine Sulf Inj 10 Mg/Ml Vial) 6 mg IVP X1 ONE Stop: 07/24/24 01:51 Last Admin: 07/24/24 02:16 Dose: 6 mg Documented By: ROCIO NS, Toradol, Morphine, Magnesium Sulfate Consultations Consultation(s) initiated? (list below): No Diagnosis Upper Extremity Injury Differential Diagnosis: dislocation of shoulder and other (Cervical radiculopathy, CA, PE, psychogenic) Most likely diagnosis given after review of the tests above:: Cervical spine stenosis and hypomagnesemia. Admission Indicated Admission indicated?: not indicated Explain why admission is indicated or not indicated:: With significant improvement, there was no indication for admission. Admission Request Was there a request for admission?: No Disposition Plan Disposition Plan: Discharge Discharge Attestation Discharge Attestation: The patient and all family members were given an opportunity to ask questions and understood the discharge instructions. Discharge instructions specifically effects, indications for sooner follow up or return to the emergency department, and the expected course of current diagnosis. Patient condition: Stable Discharge Plan Plan Patient Disposition: HOME (Self Care) Prescriptions/Referrals Prescriptions/Med Rec: New lidocaine [Lidoderm] 5 % adhesive patch,medicated 2 patch topical QDAY PRN (Reason: pain) Qty: 30 0RF Rx Instructions: leave on most painful area for up to 12 hrs No Action metformin [Glucophage] 1,000 MG tablet 1,000 mg PO BID Qty: 0 albuterol sulfate 90 mcg/actuation HFA aerosol inhaler 2 puff INH QID PRN (Reason: shortness of breath) Qty: 18 0RF bupropion HCl 100 mg tablet 100 mg PO DAILY Patient Comments: TAKE 1 TABLET BY MOUTH TWICE DAILY hydroxyzine HCl 25 mg tablet 25 mg PO DAILY Patient Comments: TAKE 1 TABLET BY MOUTH EVERY 8 HOURS NEEDED ergocalciferol (vitamin D2) 1,250 mcg (50,000 unit) capsule 1,250 mcg PO .once a week Patient Comments: TAKE 1 CAPSULE BY MOUTH WEEKLY gabapentin 300 mg capsule 300 mg PO BID Patient Comments: TAKE 1 CAPSULE BY MOUTH TWICE DAILY fluticasone propionate 50 mcg/actuation spray,suspension 1 spray INTRANASAL DAILY Patient Comments: SHAKE LIQUID AND USE 1 SPRAY IN EACH NOSTRIL DAILY loratadine 10 mg tablet 10 mg PO DAILY Patient Comments: TAKE 1 TABLET BY MOUTH DAILY FOR ALLERGIES ibuprofen 600 mg tablet 600 mg PO Q8H PRN (Reason: pain) Patient Comments: TAKE 1 TABLET BY MOUTH THREE TIMES DAILY WITH FOOD OR MILK NEEDED omeprazole 40 mg capsule,delayed release(DR/EC) 40 mg PO DAILY Patient Comments: TAKE 1 CAPSULE BY MOUTH EVERY MORNING 30 MINUTES BEFORE BREAKFAST lisinopril 40 mg tablet 40 mg PO BID montelukast 10 mg tablet 10 mg PO DAILY Patient Comments: TAKE 1 TABLET BY MOUTH DAILY albuterol sulfate 2.5 mg /3 mL (0.083 %) solution for nebulization 2.5 mg inhalation BID PRN (Reason: shortness of breath or wheezing) Patient Comments: USE 3 ML VIA NEBULIZER EVERY 6 HOURS NEEDED insulin glargine [Lantus Solostar U-100 Insulin] 100 unit/mL (3 mL) insulin pen 50 unit subcut QDAY Referrals: Gris Woody NP [Primary Care Provider] - In 1 week Problem List Clinical Impression: Cervical spinal stenosis Patient/Caregiver Discharge Instructions Discharge Activity: activity as tolerated Education Materials: ED Radiculopathy, Cervical Additional Instructions: Discharge Instructions from Dr. Briggs printed for you: 1. After evaluation, your pain is due to pinched nerve coming out of the neck. There is no life-threatening condition. Such as heart attack. 2. Controlling pinched nerve pain is very difficult. Because normal pain medications don't work well. 3. Continue your tramadol and cyclobenzaprine at home. Try lidocaine patches. 4. Wear soft neck collar for 3 full days then as needed. 5. Apply ice/heat if helpful. 6. Most importantly, see a private doctor outside the ER on 07/25/2024. Ask for MRI imaging of the neck to confirm the diagnosis and assess severity. Some people choose to have surgery. Ask to review all test results and official radiology reports, to make sure you receive all necessary follow-ups and monitoring, including magnesium level which was low today. 7. Seek immediate medical care with worsening, paralysis, or with any concerns. Instrucciones de adam del Dr. Briggs impresas para usted: 1. Tras la evaluaci?n, guadalupe dolor se debe a un nervio pinzado que sale del ji. No existe ninguna afecci?n potencialmente mortal, rakesh un infarto. 2. Controlar el dolor por nervio pinzado es muy dif?cil, ya que los analg?sicos habituales no son eficaces. 3. Contin?e con el tramadol y la ciclobenzaprina en casa. Pruebe con parches de lidoca?na. 4. Use un collar?n cervical blando laura 3 d?as completos y, a continuaci?n, seg?n sea necesario. 5. Aplique hielo/calor si le resulta ?til. 6. Lo m?s importante es que consulte con un m?dico privado fuera de urgencias el 25/07/2024. Solicite jaiden resonancia magn?jahaira del ji para confirmar el diagn?stico y evaluar la gravedad. Algunas personas optan por la cirug?a. Solicite la revisi?n de todos los resultados de las pruebas y los informes radiol?gicos oficiales para asegurarse de recibir todos los controles y monitoreos necesarios, incluyendo el nivel de magnesio, que hoy estaba bajo. 7. Busque atenci?n m?dica inmediata si presenta empeoramiento, par?lisis o cualquier inquietud. Print Language: [place] Stand Alone Forms: Myla Award Info., Patient Portal Info Letter
[2024-07-24 01:46] VITALS: BP 146/72; PULSE 106; RESP 16; TEMP 37; O2SAT 97
--- NOTE | 2024-07-24 01:52 | XR_ITS ---
Examination: CT chest, without intravenous contrast. Sagittal and coronal 2-D reconstructions. Exam date and time: July 24, 2024 0243 hours INDICATIONS: Onset of severe chest pain radiating to left arm beginning 2 months ago CTDI:vol (mGy) 18.7 DLP: (mGycm) 381 Technique: Multiple 3.0 mm axial sections of the chest to been obtained. Bone and lung density settings are obtained. Sagittal and coronal 2-D reconstructions have been obtained. Low dose protocols were performed. One or more of the following dose reduction techniques were used; automated exposure control, adjustment of the mA and/or KV according to patient size, use of iterative reconstruction technique. Findings: IMPRESSION: No pneumonia or pulmonary edema No thoracic aortic aneurysmal dilatation No paratracheal tracheobronchial or bronchopulmonary adenopathy No pneumonia or pulmonary edema. At least 13 noncalcified subcentimeter bilateral pulmonary nodules throughout the lungs No visualized liver or splenic lesion Absent gallbladder No pancreatic mass Minimal nodular thickening left adrenal gland No hydronephrosis IMPRESSION: No pneumonia or pulmonary edema At least 13 noncalcified subcentimeter pulmonary nodules throughout both lungs, with this study as baseline recommend 6 month follow-up CT chest without contrast
--- NOTE | 2024-07-24 01:52 | XR_ITS ---
Examination: CT cervical spine without contrast 2-D sagittal reconstructions 2-D coronal reconstructions 3-D reconstructions. Exam date and time:July 24, 2024 0241 hours INDICATIONS: Neck pain beginning 2 months ago CTDI:vol (mGy) 18.7 DLP: (mGycm) 381 Technique: Multiple 2 mm axial sections of the cervical spine have been obtained. The coronal and sagittal reconstructions have been obtained. 3-D reconstructions have been obtained. Low dose protocols were performed. One or more of the following dose reduction techniques were used; automated exposure control, adjustment of the mA and/or KV according to patient size, use of iterative reconstruction technique. Findings: Axial sections demonstrate intact base of the skull. C1 exhibit satisfactory relationship to the odontoid. No acute cervical vertebral body fracture seen. Alignment posterior spinous processes satisfactory. Impression: No acute cervical fracture. Moderate degenerative disc disease C6-C7 As clinically warranted, elective MRI cervical spine follow up would best assess for acquired soft tissue spinal stenosis
[2024-07-24] MEDS: KETOROLAC INJ 30 MG/ML VIAL 15 MG IVP (02:14)
[2024-07-24] MEDS: SODIUM CHLORIDE 0.9% 1000 ML 1,000 ML 250 ML IV (02:14)
[2024-07-24] MEDS: MORPHINE SULF INJ 10 MG/ML VIAL 6 MG IVP (02:16)
[2024-07-24 02:26] LABS: Basophils % (Auto) 0 % (0-2.5); Eosinophils # (Auto) 0.1 Thou/mm3 (0.0-0.5); Eosinophils % (Auto) 1 % (0-10); Hematocrit 35.6 % (36.0-46.0); Hemoglobin 11.5 g/dL (12.0-16.0); Immature Granulocytes % (Auto) 0 % (0-0); Immature Granulocytes Auto 0.03 Thou/mm3 (0.00-0.00); Lymphocytes # (Auto) 2.2 Thou/mm3 (1.0-4.8); Lymphocytes % (Auto) 21 % (10-50); Mean Corpuscular HGB Conc 32.3 g/dl (31.0-37.0); Mean Corpuscular Hemoglobin 27.6 pg (25.0-35.0); Mean Corpuscular Volume 85 fL (80-100); Monocytes # (Auto) 0.8 Thou/mm3 (0.0-0.8); Monocytes % (Auto) 7 % (0-12); Neutrophils # (Auto) 7.5 Thou/mm3 (1.8-7.7); Neutrophils % (Auto) 70 % (37-80); Nucleated Red Blood Cell % 0 /100 WBC (0); Platelet Count 151 Thou/mm3 (140-440); RDW Standard Deviation 46.6 fL (36.4-46.3); Red Blood Count 4.17 Miln/mm3 (4.00-5.20); White Blood Count 10.6 Thou/mm3 (3.6-11.0)
[2024-07-24 02:45] LABS: Alanine Aminotransferase 19 U/L (10-49); Albumin, Serum 4.5 gm/dL (3.4-4.8); Albumin/Globulin Ratio 2.6 (1.2-2.2); Alkaline Phosphatase 74 U/L (46-116); Anion Gap 9 (7-16); Aspartate Amino Transferase 18 U/L (0-34); BUN/Creatinine Ratio 25 Ratio (12-20); Bilirubin,Total 0.7 mg/dL (0.3-1.2); Blood Urea Nitrogen 15 mg/dL (9-23); Calcium 8.8 mg/dL (8.3-10.6); Calcium (Corrected) 8.8 mg/dL (8.5-10.1); Chloride 101 mMol/L (98-107); Creatinine (Component) 0.6 mg/dL (0.6-1.3); Estimated Creatinine Clearance 97.8 mL/min (>60); Globulin 1.7 gm/dL (2.3-3.5); Glucose 181 mg/dL (74-106); Magnesium 1.4 mg/dL (1.6-2.6); Osmolality,Calculated 283 (275-295); Potassium 3.5 mMol/L (3.4-5.1); Sodium 139 mMol/L (136-145); Total Protein 6.2 gm/dL (5.7-8.2); Troponin I 0.027 ng/mL (0.0-0.045); eGFR > 60 See Note
[2024-07-24 03:01] LABS: B-Type Natriuretic Peptide < 20 pg/mL (0-100)
--- NOTE | 2024-07-24 03:18 | PRELIM_ITS ---
CT scan of the cervical spine without intravenous contrast (axial sections with sagittal and coronal reformats) July 24, 2024 at 0241 hours Clinical History: Pain radiating into right arm. Comparison: None. Findings: There is no fracture or subluxation. The prevertebral soft tissues are unremarkable. Loss of the physiologic cervical lordosis. Impression: No evidence of fracture or subluxation. Report Electronically Signed By: Erasmo Kwon 07/24/2024 3:17:53 AM [EST]
--- NOTE | 2024-07-24 03:20 | PRELIM_ITS ---
CT scan of the chest without intravenous contrast (axial sections with sagittal and coronal reformats) July 24, 2024 at 0243 hours Clinical History: Severe left chest pain. Comparison: None. Findings: The lungs are clear. No evidence of pleural effusion or pneumothorax. The mediastinum demonstrates no evidence of mass or lymphadenopathy. The thoracic aorta is unremarkable. There is no pericardial effusion. Degenerative changes of the imaged portions of the spine. Chronic multilevel disc disease. No acute fractures. Vascular calcifications. Status postcholecystectomy. Coronary arteries calcifications. Small hiatus hernia. Impression: Coronary arteries calcifications. If acute myocardial infarction is clinically suspected, consider correlation with troponin. Small hiatus hernia. Report Electronically Signed By: Erasmo Kwon 07/24/2024 3:20:31 AM [EST]
[2024-07-24 04:28] VITALS: BP 138/77; PULSE 98; RESP 16; TEMP 36.6; O2SAT 97
[2024-07-24] MEDS: Magnesium Sulfate 2 GM Ivpb 2 GM/50 ML BAG IV (04:28)
[2024-07-24 06:44] VITALS: BP 129/75; PULSE 95; RESP 18; O2SAT 98
== END 2024-07-24 07:09 | disposition home or self-care (01) ==
PROVIDERS: Emergency Provider Emergency Medicine; PCP Registered Nurse
DX: M48.02 Spinal stenosis, cervical region (principal); E11.9 Type 2 diabetes mellitus without complications; I10 Essential (primary) hypertension; I48.91 Unspecified atrial fibrillation
CPT/HCPCS: 36415; 71250; 72125; 80053; 83735; 83880; 84484; 85025; 93005; 96361; 96365; 96366; 96375; 99284; J1885; J2270; J3475; J7030

== ENCOUNTER → 2024-07-30 | Outpatient (CLI) | payer MEDICARE, SELFPAY ==
--- NOTE | 2024-07-30 17:01 | XR_ITS ---
Examination: Foot, right, 3 views Technique: AP, oblique, lateral views foot, 3 views Date and time of exam: July 30, 2024 8009 hours INDICATIONS: Right foot pain beginning several days ago. FINDINGS: Moderate osteopenia. No fracture. 6 mm plantar bony calcaneal spur. No cortical bone erosions IMPRESSION: No fracture. 6 mm plantar bony calcaneal spur
--- NOTE | 2024-07-30 17:02 | XR_ITS ---
EXAMINATION: Ankle, right 3 views . Technique: Ankle AP, oblique, lateral 3 views Date and time of exam: July 30, 2024 1809 hours INDICATIONS: Injury to the ankle several days ago with ankle pain. FINDINGS: No fracture or dislocation Plantar bony calcaneal spur IMPRESSION: No fracture or dislocation
== END | disposition home or self-care (01) ==
PROVIDERS: PCP Registered Nurse; Referring Provider Physician Assistant; Visit Provider Physician Assistant
DX: M77.31 Calcaneal spur, right foot (principal); S99.911A Unspecified injury of right ankle, initial encounter; X58.XXXA Exposure to other specified factors, initial encounter
CPT/HCPCS: 73610; 73630

== ENCOUNTER → 2024-07-30 | Outpatient (CLI) | payer MEDICARE, MEDICAID, SELFPAY ==
--- NOTE | 2024-07-30 15:15 | XR_ITS ---
Examination: Screening digital mammography, bilateral Computer aided detection 3-D breast Tomosynthesis, bilateral Date and time of exam: July 30, 2024 1444 hours Compared to mammograms dating to March 27, 2012 Indication: Screening Technique: Nonmagnified MLO, CC views of the breasts to been obtained, reconstructed from 3-D Tomosynthesis images. R2 computer aided detection program utilized for evaluation of suspicious masses and/or abnormal calcifications. 3-D Tomosynthesis images obtained. Findings: Scattered areas of fibroglandular density. Benign calcifications. No interval suspicious masses Impression: BI-RADS category II: Benign Findings. Recommend 1 year follow-up mammogram.
== END | disposition home or self-care (01) ==
LOC: CDIM 14:31
PROVIDERS: Referring Provider Family Medicine; Visit Provider Family Medicine
DX: Z12.31 Encounter for screening mammogram for malignant neoplasm of breast (principal); R92.323 Mammographic fibroglandular density, bilateral breasts; R92.1 Mammographic calcification found on diagnostic imaging of breast
CPT/HCPCS: 77063; 77067

== ENCOUNTER → 2024-09-13 | Outpatient (CLI) | payer MEDICARE, SELFPAY ==
--- NOTE | 2024-09-13 08:00 | XR_ITS ---
Examination: MRI cervical spine without intravenous contrast Date and time of exam: September 13, 2024 0823 hours INDICATIONS: Neck pain 4 months Technique: Multiple axial and sagittal sections of the cervical spine to been obtained. T2 weighted sagittal sections, TR 3, 270, TE 117 T1-weighted sagittal sections, TR 500, TE 11 T1-weighted axial sections, TR 607, TE 12, axial sections TR 18, TE 27 and T2 weighted transverse sections, TR 3920, TE 122. Findings: Satisfactory alignment cervical vertebral bodies No cervical fracture Intact odontoid Diffuse cervical disc desiccation C3-C4 moderate right neural foraminal stenosis C4-C5 no disc protrusion C5-C6 5 mm right paracentral disc bulge indenting the ventral margin cervical cord C6-C7 2 mm central subarticular osteophyte disc complex C7-T1 no disc protrusion IMPRESSION: C3-C4 moderate right neural foraminal stenosis C5-C6 5 mm right paracentral disc bulge indenting the ventral margin cervical cord C6-C7 2 mm central subarticular osteophyte disc complex
--- NOTE | 2024-09-13 08:30 | XR_ITS ---
Examination: MRI right ankle, without contrast Date and time of exam: September 13, 2024 0845 hours INDICATIONS: Right ankle and heel pain 6 months Technique: Multiple axial sagittal and coronal images of the right ankle have been obtained with the Siemens high-resolution 1.5 Veronica MRI scanner. Images obtained include T2-weighted fat-suppressed sagittal sections, TR 3500, TE 46, T2 weighted coronal fat suppressed images, TR 3050, TE 84, T2-weighted transverse fat suppressed images, TR 3260, TE 63, proton density transverse images, TR 4720 TE 46, and T1 weighted coronal images, TR 560, TE 13. Findings: Adequate marrow signal, no occult fracture or marrow edema bone contusion or avascular necrosis Mild convex thickening of the Achilles tendon Moderate plantar fasciitis Anterior posterior inferior tibiofibular ligaments intact Talar fibular ligaments intact Tendinitis posterior tibial flexor digitorum and flexor hallucis longus tendons Extensor tendons intact IMPRESSION: Mild Achilles tendinosis Moderate plantar fasciitis Tendinitis posterior tibial, flexor digitorum, flexor hallucis longus tendons No occult fracture No avascular necrosis
== END | disposition home or self-care (01) ==
LOC: SMRI 08:00
PROVIDERS: PCP Family Medicine; Referring Provider Registered Nurse; Visit Provider Registered Nurse
DX: M48.02 Spinal stenosis, cervical region (principal); M25.78 Osteophyte, vertebrae; M72.2 Plantar fascial fibromatosis; M76.821 Posterior tibial tendinitis, right leg
CPT/HCPCS: 72141; 73721